=== PATIENT | female | born 1975 | race Caucasian/White ===

== ENCOUNTER 2016-12-23 23:25 | Emergency (ER) | payer OTHER ==
[~2016-12-23] VITALS: Ht 162.6 cm; Wt 54.0 kg
[~2016-12-23 23:25] MED LIST: PRIL20TA2 PO
[2016-12-23 23:26] VITALS: BP 129/80; PULSE 92; RESP 16; TEMP 98.3; O2SAT 98
--- NOTE | 2016-12-24 00:07 | PD ---
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 The patient accidentally stuck her left index finger with an insulin needle after it was used on a patient. There is mild pain at the site. This occurred just prior to arrival in the emergency department. She does not wish to start postexposure prophylaxis. PFSH Past Medical History ?: Not LMP: 2 WKS AGO Social History Alcohol Use: No Tobacco Use: No Allergies-Medications (Allergen,Severity, Reaction): Coded Allergies: Sulfa (Verified Allergy, Severe, Rash, 12/24/16) Reported Meds & Prescriptions Reported Meds & Active Scripts Active Prilosec (Omeprazole Magnesium) 20 Mg Tab 20 Tab PO ONCE Review of Systems Except as stated in HPI: all other systems reviewed are Neg Physical Exam Narrative GENERAL: Well-developed, well-nourished, comfortable, no acute distress. SKIN: Focused skin assessment warm/dry. Index finger without warmth or erythema. No obvious puncture site. CARDIOVASCULAR: Normal capillary refill in left index finger. NEUROLOGICAL: Awake and alert. No obvious cranial nerve deficits. Motor grossly within normal limits. Normal speech. PSYCHIATRIC: Appropriate mood and affect; insight and judgment normal. 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 The patient was stuck in her left index finger with an insulin syringe after was used on the patient. She does not wish to start postexposure prophylaxis. Diagnosis Primary Impression: Needle stick injury of finger Qualified Code: S61.239A - Needle stick injury of finger, initial encounter Referrals: Employ [facility] 1 day Additional Instructions: Follow-up with employee health. Disposition: 01 DISCHARGE HOME Condition: Stable Jose Carlos Walker MD Dec 24, 2016 00:07
== END 2016-12-24 00:17 | disposition home or self-care (01) ==
LOC: NEPD 23:25
DX: S61.231A Puncture wound without foreign body of left index finger without damage to nail, initial encounter (principal); W46.0XXA Contact with hypodermic needle, initial encounter; Y93.F9 Activity, other caregiving; Y92.239 Unspecified place in hospital as the place of occurrence of the external cause
CPT/HCPCS: 99282

== ENCOUNTER 2017-10-19 10:19 | Inpatient (IN) | payer OTHER ==
[~2017-10-19] VITALS: Ht 162.6 cm; Wt 55.0 kg
[2017-10-19 10:20] VITALS: BP 122/77; PULSE 113; RESP 18; TEMP 98.9; O2SAT 99
[2017-10-19 10:59] VITALS: BP 126/81; PULSE 108; RESP 18; O2SAT 23
[2017-10-19] MEDS ORDERED: SODIUM CHLOR 0.9% 1000 ML INJ 1,000 ML IV SCH (11:41)
--- NOTE | 2017-10-19 12:02 | PD ---
HPI Chief Complaint: Abnormal Results Time Seen by Provider: 11:30 Travel History International Travel<30 days: No Contact w/Intl Traveler<30days: No Traveled to known affect area: No History of Present Illness HPI 42-year-old female presents to the emergency room for evaluation after being referred here by outpatient lab for an elevated white count, liver enzymes, and low red blood cells. Patient states since September 19 she has been having health issues including worsening abdominal edema, lower extremity edema, and right upper quadrant abdominal pain. She went to her primary care physician and had a CT which showed gallstones of the liver. She was referred to licensed occupational therapist, . She saw him 2 days ago and was told that she likely has ascites and cirrhosis and was to be started on aldosterone and lasix today. When she went to get her medication filled, the lab called her and told her to go to the ER because of abnormal results. Patient reports occasional nausea but no vomiting. She denies significant abdominal pain. She had a fever of 102.3 1.5 weeks ago but has not had one since. She denies any other upper respiratory symptoms. Denies any other chronic medical conditions or daily medications. Patient quit drinking 2 days ago. Previously she was drinking 1 large bottle of wine (about 6-8 glasses) per day. Since quitting abruptly, she has had some tachycardia but no other significant symptoms. PFSH Past Medical History Cirrhosis: Yes Diminished Hearing: No Gastrointestinal Disorders: Yes (GALLSTONES, ASCITES ) Medical other: Yes (ELEVATED LIVER ENZYMES , HX: ETOH ABUSE ) Tetanus Vaccination: < 5 Years Influenza Vaccination: Yes ?: Not LMP: NOW Past Surgical History Surgical History: No Previous Surgery Social History Alcohol Use: Yes (HX : ETOH ) Tobacco Use: No Allergies-Medications (Allergen,Severity, Reaction): Coded Allergies: Sulfa (Sulfonamide Antibiotics) (Unverified Allergy, Severe, Rash, 10/19/17 ) Reported Meds & Prescriptions Reported Meds & Active Scripts Active Prilosec (Omeprazole Magnesium) 20 Mg Tab 20 Tab PO ONCE Review of Systems Except as stated in HPI: all other systems reviewed are Neg Physical Exam Narrative GENERAL: Well-nourished, well-developed female in no acute distress. Afebrile. Ambulatory. SKIN: Focused skin assessment warm/dry. HEAD: Normocephalic. EYES: No scleral icterus. No injection or drainage. NECK: Supple, trachea midline. No JVD or lymphadenopathy. CARDIOVASCULAR: Regular rate and rhythm without murmurs, gallops, or rubs. RESPIRATORY: Breath sounds equal bilaterally. No accessory muscle use. GASTROINTESTINAL: Abdomen soft, non-tender. Moderate distention of the abdomen. MUSCULOSKELETAL: No cyanosis. 1+ pitting edema bilaterally. Data Data Last Documented VS Vital Signs Date Time Temp Pulse Resp B/P (MAP) Pulse Ox O2 Delivery O2 Flow Rate FiO2 10/19/17 11:00 98 Room Air 10/19/17 10:59 108 18 126/81 (96) 10/19/17 10:20 98.9 Orders Orders Complete Blood Count With Diff (10/19/17 11:41) Comprehensive Metabolic Panel (10/19/17 11:41) Lipase (10/19/17 11:41) Lactic Acid (10/19/17 11:41) Prothrombin Time / Inr (Pt) (10/19/17 11:41) Act Partial Throm Time (Ptt) (10/19/17 11:41) Urinalysis - C+S If Indicated (10/19/17 11:41) Abdomen, Flat & Upright (10/19/17 ) Iv Access Insert/Monitor (10/19/17 11:41) Sodium Chlor 0.9% 1000 Ml Inj (Ns 1000 M (10/19/17 11:41) Ed Urine Pregnancytest Poc (10/19/17 11:41) Blood Culture (10/19/17 13:23) Consult Gastroenterology (10/19/17 ) Us Abdomen Gallbladder (10/19/17 ) Admit To Inpatient (10/19/17 ) Code Status (10/19/17 14:16) Vital Signs (Adult) Q4H (10/19/17 14:16) Activity Oob With Assistance (10/19/17 14:16) Sodium Chloride 0.9% Flush (Ns Flush) (10/19/17 14:30) Sodium Chloride 0.9% Flush (Ns Flush) (10/19/17 21:00) Ondansetron Inj (Zofran Inj) (10/19/17 14:30) Comprehensive Metabolic Panel (10/20/17 06:00) Complete Blood Count With Diff (10/20/17 06:00) Chest, Single Ap (10/19/17 14:16) Electrocardiogram (10/19/17 14:16) Pt Request For Service (10/19/17 14:16) Scd Bilateral/Knee High ANY.BID (10/19/17 14:16) Naloxone Inj (Narcan Inj) (10/19/17 14:30) Magnesium Hydroxide Liq (Milk Of Magnesi (10/19/17 14:30) Inpatient Certification (10/19/17 ) Naloxone Inj (Narcan Inj) (10/19/17 14:30) Alcohol Withdrawal Asmt-Ciwa Q4HX18 (10/19/17 14:18) Flumazenil Inj (Romazicon Inj) (10/19/17 14:30) Lorazepam (Ativan) (10/19/17 14:30) Lorazepam Inj (Ativan Inj) (10/19/17 14:30) Lorazepam (Ativan) (10/19/17 14:30) Lorazepam Inj (Ativan Inj) (10/19/17 14:30) Lorazepam Inj (Ativan Inj) (10/19/17 14:30) Lorazepam Inj (Ativan Inj) (10/19/17 14:30) Outside Collector / Telemetry .CONTINUOUS (10/19/17 14:18) Docusate Sodium-Senna (Belen-Colace) (10/19/17 21:00) Multivitamin (Theragran) (10/20/17 09:00) Thiamine (Vit B1) (Vitamin B1) (10/20/17 09:00) Folic Acid (Folate) (10/20/17 09:00) Diet Clear Liquid (10/19/17 Dinner) Ns + Kcl 20 Meq Inj (Ns + Kcl 20 Meq Inj (10/19/17 14:30) Blood Culture (10/19/17 14:26) Admit Order (Ed Use Only) (10/19/17 14:26) Labs Laboratory Tests Test 10/19/17 11:10 10/19/17 12:00 White Blood Count 25.3 TH/MM3 Red Blood Count 3.40 MIL/MM3 Hemoglobin 11.7 GM/DL Hematocrit 34.6 % Mean Corpuscular Volume 101.8 FL Mean Corpuscular Hemoglobin 34.5 PG Mean Corpuscular Hemoglobin Concent 33.8 % Red Cell Distribution Width 16.2 % Platelet Count 407 TH/MM3 Mean Platelet Volume 7.0 FL Neutrophils (%) (Auto) 88.8 % Lymphocytes (%) (Auto) 5.7 % Monocytes (%) (Auto) 3.6 % Eosinophils (%) (Auto) 1.5 % Basophils (%) (Auto) 0.4 % Neutrophils # (Auto) 22.4 TH/MM3 Lymphocytes # (Auto) 1.4 TH/MM3 Monocytes # (Auto) 0.9 TH/MM3 Eosinophils # (Auto) 0.4 TH/MM3 Basophils # (Auto) 0.1 TH/MM3 CBC Comment AUTO DIFF Differential Total Cells Counted 100 Neutrophils % (Manual) 82 % Band Neutrophils % 12 % Monocytes % 4 % Eosinophils % 2 % Neutrophils # (Manual) 23.8 TH/MM3 Differential Comment FINAL DIFF MANUAL Toxic Vacuolation PRESENT Platelet Estimate NORMAL Platelet Morphology Comment NORMAL Prothrombin Time 15.4 SEC Prothromb Time International Ratio 1.5 RATIO Activated Partial Thromboplast Time 31.0 SEC Blood Urea Nitrogen 5 MG/DL Creatinine 0.37 MG/DL Random Glucose 115 MG/DL Total Protein 6.9 GM/DL Albumin 2.8 GM/DL Calcium Level 8.5 MG/DL Alkaline Phosphatase 684 U/L Aspartate Amino Transf (AST/SGOT) 138 U/L Alanine Aminotransferase (ALT/SGPT) 56 U/L Total Bilirubin 4.1 MG/DL Sodium Level 137 MEQ/L Potassium Level 3.5 MEQ/L Chloride Level 100 MEQ/L Carbon Dioxide Level 28.1 MEQ/L Anion Gap 9 MEQ/L Estimat Glomerular Filtration Rate 193 ML/MIN Lactic Acid Level 1.0 mmol/L Lipase 329 U/L Urine Color YELLOW Urine Turbidity CLEAR Urine pH 7.0 Urine Specific [place] 1.005 Urine Protein NEG mg/dL Urine Glucose (UA) NEG mg/dL Urine Ketones 10 mg/dL Urine Occult Blood NEG Urine Nitrite NEG Urine Bilirubin NEG Urine Urobilinogen LESS THAN 2.0 MG/DL Urine Leukocyte Esterase NEG Urine WBC 1 /hpf Urine Bacteria RARE /hpf Microscopic Urinalysis Comment CULT NOT INDICATED MDM Medical Decision Making Medical Screen Exam Complete: Yes Emergency Medical Condition: Yes Medical Record Reviewed: Yes Differential Diagnosis Ascites, ovarian cancer, cirrhosis, fatty liver Narrative Course 42-year-old female with no significant past medical history presents to the emergency room for evaluation of leukocytosis and transaminitis. Patient was referred by outpatient lab because of elevated results. States since September 19 , she isn't experiencing bloating and malaise. She went to her PCP who ordered outpatient labs and CT and was referred to gastroenterology for fatty liver and transaminitis. Her licensed occupational therapist saw her 2 days ago and ordered more labs with recommendation to start her on aldosterone and Lasix for cirrhosis. She was able to pecan picker the medication because she was told to come to the ER instead. Patient denies any significant abdominal pain. She has constant, chronic right upper quadrant pain with occasional nausea but no vomiting. Normal appetite. She was a daily drinker but quit 2 days ago. Physical exam reveals moderate distention and right upper quadrant tenderness. No peritoneal signs or rebound tenderness. CBC shows leukocytosis. CMP shows transaminitis. Lactic acid is 1. Lipase is 329. UA shows no evidence of infection. Abdominal x-ray shows abnormal air-fluid levels with no hepatosplenomegaly. Ultrasound gallbladder is ordered and pending. Routine gastroenterology consult placed. I spoke to Dr. Elder who agrees to admit this patient to his service. Diagnosis Primary Impression: Leukocytosis Qualified Codes: D72.825 - Bandemia Additional Impressions: Transaminitis Abdominal pain Qualified Codes: R10.11 - Right upper quadrant pain Condition: Stable Yas Keyes Oct 19, 2017 12:02
[2017-10-19 12:21] LABS: AUTOMATED NEUTROPHIL # 22.4 TH/MM3 (1.8-7.7); BASOPHIL # 0.1 TH/MM3 (0-0.2); BASOPHIL % 0.4 % (0.0-2.0); EOSINOPHIL # 0.4 TH/MM3 (0-0.4); EOSINOPHIL % 1.5 % (0.0-4.0); HEMATOCRIT 34.6 % (35.0-46.0); HEMOGLOBIN 11.7 GM/DL (11.6-15.3); LYMPH % 5.7 % (9.0-44.0); LYMPHOCYTE # 1.4 TH/MM3 (1.0-4.8); MEAN CELL VOLUME 101.8 FL (80.0-100.0); MEAN CORPUSCULAR HEMOGLOBIN 34.5 PG (27.0-34.0); MEAN CORPUSCULAR HGB CONC 33.8 % (32.0-36.0); MONO % 3.6 % (0.0-8.0); MONOCYTE # 0.9 TH/MM3 (0-0.9); NEUT % 88.8 % (16.0-70.0); PLATELET COUNT 407 TH/MM3 (150-450); RED CELL DISTRIBUTION WIDTH 16.2 % (11.6-17.2); WHITE BLOOD COUNT 25.3 TH/MM3 (4.0-11.0)
[2017-10-19 12:27] LABS: BACTERIA, URINE RARE /hpf; BILIRUBIN, URINE NEG (NEG); BLOOD, URINE NEG (NEG); GLUCOSE,URINE NEG (NEG); KETONE, URINE 10 mg/dL (NEG); NITRITE,URINE NEG (NEG); URINE COLOR YELLOW (YELLW/STRAW); URINE LEUKOCYTE ESTERASE NEG (NEG)
[2017-10-19 12:28] LABS: INTERNATIONAL NORMALIZED RATIO 1.5 RATIO; PROTHROMBIN TIME - PATIENT 15.4 SEC (9.8-11.6)
[2017-10-19 12:36] LABS: ALBUMIN 2.8 GM/DL (3.4-5.0); ALT (GPT) 56 U/L (10-53); AST (GOT) 138 U/L (15-37); BICARBONATE 28.1 MEQ/L (21.0-32.0); BLOOD UREA NITROGEN 5 MG/DL (7-18); CALCIUM 8.5 MG/DL (8.5-10.1); CHLORIDE 100 MEQ/L (98-107); CREATININE 0.37 MG/DL (0.50-1.00); GLOMERULAR FILTRATION RATE 193 ML/MIN (>89); GLUCOSE,RANDOM 115 MG/DL (74-106); SODIUM (NA) 137 MEQ/L (136-145)
[2017-10-19 12:38] LABS: ALKALINE PHOSPHATASE 684 U/L (45-117); TOTAL BILIRUBIN ADULT 4.1 MG/DL (0.2-1.0); TOTAL PROTEIN 6.9 GM/DL (6.4-8.2)
[2017-10-19 13:01] LABS: BANDS 12 % (0-6); MONOCYTES 4 % (0-8); NEUTROPHIL # MANUAL DIFF 23.8 TH/MM3 (1.8-7.7); POLYS (SEG NEUTROPHILS) 82 % (16-70)
[2017-10-19 13:03] LABS: TOXIC VACUOLATION PRESENT (NONE SEEN)
--- NOTE | 2017-10-19 13:09 | RADRPT ---
EXAM DATE/TIME: 10/19/2017 12:17 [place] COMPARISON: No previous studies available for comparison. INDICATIONS : Abdomen pain and distention, loss of appetite. MEDICAL HISTORY : None. SURGICAL HISTORY : None. ENCOUNTER: Initial ACUITY: 3 weeks PAIN SCORE: 3/10 LOCATION: Bilateral chest FINDINGS: Supine and upright views of the abdomen demonstrate air within bowel in a nonobstructive pattern. How ever, there is mildly distended small bowel in the central abdomen which demonstrate air-fluid levels on the upright image. Liver shadow is mildly enlarged. Spleen shadow also appears enlarged. No chula rning calcifications are identified. There is mild levoscoliosis of the lumbar spine. Lung bases are clear. CONCLUSION: 1. There are no findings to indicate small bowel obstruction but small bowel gas pattern is abnormal with a few mildly distended segments of small bowel in the left mid abdomen demonstrating air-fluid l evels. Suggest followup to confirm resolution. 2. The liver appears enlarged and there is possible splenomegaly as well. Lyle Omalley MD on October 19, 2017 at 13:05 Board Certified Radiologist. This report was verified electronically.
--- NOTE | 2017-10-19 14:29 | HHI.HP ---
HPI Service [facility] Hospitalists Primary Care Physician Benny Salomon MD Admission Diagnosis Leukocytosis Chief Complaint: sent by PCP due to abnormal labs Travel History International Travel<30 Days: No Contact w/Intl Traveler <30 Da: No Traveled to Known Affected Are: No History of Present Illness This is a 42-year-old female with a past medical history which includes hyperlipidemia, elevated liver enzymes, IBS and ETOH abuse, quit drinking 2 days ago. Patient presents to the emergency room for evaluation after being referred here by outpatient lab for an elevated white count, liver enzymes, and low red blood cells. Patient states since September 19 she has been having worsening abdominal edema/bloating, intermitted bilateral lower extremity edema , occational nausea but no vomiting. Patient endorses diarrhea after the CT with contrast but that has resulted. She went to her primary care physician and had a CT which showed fatty liver. She was referred to auto finance sales rep, . She saw him 2 days ago and was told that she likely has ascites secondary to cirrhosis and was to be started on aldosterone and lasix today. Patient reports that the lab called her and told her to go to the ER because of abnormal results. She denies significant abdominal pain. She had a fever of 102.3 1.5 weeks ago but has not had one since. Patient denies congestion, dysuria, increased urinary frequency, chest pain or shortness or breath. 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 Review of Systems Constitutional: DENIES: Fatigue, Fever, Chills Respiratory: DENIES: Cough, Sputum production, Shortness of breath Cardiovascular: COMPLAINS OF: Palpitations, DENIES: Chest pain Gastrointestinal: COMPLAINS OF: Abdominal pain, DENIES: Constipation, Diarrhea , Nausea, Vomiting (described as abdominal bloating) Genitourinary: DENIES: Urinary frequency, Urgency, Dysuria Neurologic: DENIES: Abnormal gait, Headache, Localized weakness Psychiatric: DENIES: Anxiety, Confusion, Mood changes Past Family Social History Past Medical History hyperlipidemia, elevated liver enzymes, IBS and ETOH abuse, quit drinking 2 days ago Past Surgical History precancerous mole removed left upper arm Reported Medications Prilosec (Omeprazole Magnesium) 20 Mg Tab 20 Tab PO ONCE Allergies: Coded Allergies: Sulfa (Sulfonamide Antibiotics) (Unverified Allergy, Severe, Rash, 10/19/17 ) Active Ordered Medications Current Medications Medications (Trade) Dose Ordered Sig/Maritza Route Start Time Stop Time Status Last Admin (NS Flush) 2 ml UNSCH PRN IV FLUSH 10/19/17 14:30 (NS Flush) 2 ml BID IV FLUSH 10/19/17 21:00 (Zofran Inj) 4 mg Q6H PRN IVP 10/19/17 14:30 (Narcan Inj) 0.4 mg UNSCH PRN IV PUSH 10/19/17 14:30 (Milk Of Magnesia Liq) 30 ml Q12H PRN PO 10/19/17 14:30 (Narcan Inj) 0.4 mg UNSCH PRN IV PUSH 10/19/17 14:30 (Romazicon Inj) 0.2 mg Q1M PRN IV PUSH 10/19/17 14:30 (Ativan) 1 mg Q4H PRN PO 10/19/17 14:30 (Ativan Inj) 1 mg Q4H PRN IV PUSH 10/19/17 14:30 (Ativan) 2 mg Q2H PRN PO 10/19/17 14:30 (Ativan Inj) 2 mg Q2H PRN IV PUSH 10/19/17 14:30 (Ativan Inj) 2 mg Q1H PRN IV PUSH 10/19/17 14:30 (Ativan Inj) 2 mg Q15M PRN IV PUSH 10/19/17 14:30 (Belen-Colace) 1 tab BID PO 10/19/17 21:00 (Theragran) 1 tab DAILY PO 10/20/17 09:00 (Vitamin B1) 100 mg DAILY PO 10/20/17 09:00 (Folate) 1 mg DAILY PO 10/20/17 09:00 Potassium Chloride/Sodium Chloride 1,000 ml @ 85 mls/hr [id number] IV 10/19/17 14:30 10/19/17 15:04 Family History Noncontributory Social History History of EtOH use usually drinks 1 large bottle of wine per day and quit drinking 2 days ago Denies tobacco use or illicit drug use Physical Exam Vital Signs Vital Signs Date Time Temp Pulse Resp B/P (MAP) Pulse Ox O2 Delivery O2 Flow Rate FiO2 10/19/17 11:00 98 Room Air 10/19/17 10:59 108 18 126/81 (96) 23 Room Air 10/19/17 10:20 98.9 113 18 122/77 (92) 99 Room Air Physical Exam GENERAL: This is a well-nourished, well-developed patient, in no apparent distress. SKIN: No rashes, ecchymoses or lesions. Cool and dry. HEAD: Atraumatic. Normocephalic. No temporal or scalp tenderness. EYES:Extraocular motions intact. No scleral icterus. No injection or drainage. CARDIOVASCULAR: Tachycardic RESPIRATORY: Clear to auscultation. Breath sounds equal bilaterally. GASTROINTESTINAL: Abdomen soft, non-tender, distended. Liver margin below costal margin extends to the pelvic rim MUSCULOSKELETAL: Extremities without clubbing, cyanosis, or edema. No joint tenderness, effusion, or edema noted. No calf tenderness. Negative Homans sign bilaterally. NEUROLOGICAL: Awake and alert. No focal deficits noted. Motor and sensory grossly within normal limits. Five out of 5 muscle strength in all muscle groups. Normal speech. Laboratory Laboratory Tests Test 10/19/17 11:10 10/19/17 12:00 White Blood Count 25.3 Red Blood Count 3.40 Hemoglobin 11.7 Hematocrit 34.6 Mean Corpuscular Volume 101.8 Mean Corpuscular Hemoglobin 34.5 Mean Corpuscular Hemoglobin Concent 33.8 Red Cell Distribution Width 16.2 Platelet Count 407 Mean Platelet Volume 7.0 Neutrophils (%) (Auto) 88.8 Lymphocytes (%) (Auto) 5.7 Monocytes (%) (Auto) 3.6 Eosinophils (%) (Auto) 1.5 Basophils (%) (Auto) 0.4 Neutrophils # (Auto) 22.4 Lymphocytes # (Auto) 1.4 Monocytes # (Auto) 0.9 Eosinophils # (Auto) 0.4 Basophils # (Auto) 0.1 CBC Comment AUTO DIFF Differential Total Cells Counted 100 Neutrophils % (Manual) 82 Band Neutrophils % 12 Monocytes % 4 Eosinophils % 2 Neutrophils # (Manual) 23.8 Differential Comment FINAL DIFF MANUAL Toxic Vacuolation PRESENT Platelet Estimate NORMAL Platelet Morphology Comment NORMAL Prothrombin Time 15.4 Prothromb Time International Ratio 1.5 Activated Partial Thromboplast Time 31.0 Blood Urea Nitrogen 5 Creatinine 0.37 Random Glucose 115 Total Protein 6.9 Albumin 2.8 Calcium Level 8.5 Alkaline Phosphatase 684 Aspartate Amino Transf (AST/SGOT) 138 Alanine Aminotransferase (ALT/SGPT) 56 Total Bilirubin 4.1 Sodium Level 137 Potassium Level 3.5 Chloride Level 100 Carbon Dioxide Level 28.1 Anion Gap 9 Estimat Glomerular Filtration Rate 193 Lactic Acid Level 1.0 Lipase 329 Urine Color YELLOW Urine Turbidity CLEAR Urine pH 7.0 Urine Specific [place] 1.005 Urine Protein NEG Urine Glucose (UA) NEG Urine Ketones 10 Urine Occult Blood NEG Urine Nitrite NEG Urine Bilirubin NEG Urine Urobilinogen LESS THAN 2.0 Urine Leukocyte Esterase NEG Urine WBC 1 Urine Bacteria RARE Microscopic Urinalysis Comment CULT NOT INDICATED Date/Time Source Procedure Growth Status 10/19/17 10:45 Blood Peripheral Aerobic Blood Culture Pending Received 10/19/17 10:45 Blood Peripheral Anaerobic Blood Culture Pending Received Result Diagram: 10/19/17 1110 10/19/17 1110 Imaging Last Impressions Abdomen X-Ray 10/19/17 0000 Signed Impressions: Service Date/Time: Thursday, October 19, 2017 12:17 - CONCLUSION: 1. There are no findings to indicate small bowel obstruction but small bowel gas pattern is abnormal with a few mildly distended segments of small bowel in the left mid abdomen demonstrating air-fluid levels. Suggest followup to confirm resolution. 2. The liver appears enlarged and there is possible splenomegaly as well. MD Nik Sher VTE Risk Assessment Caprini VTE Risk Assessment: No/Low Risk (score <= 1) Caprini Risk Assessment Model Point Value = 1 Point Value = 2 Point Value = 3 Point Value = 5 Age 41-60 Minor surgery BMI > 25 kg/m2 Swollen legs Varicose veins or History of unexplained or recurrent spontaneous Oral contraceptives or hormone replacement Sepsis (< 1 month) Serious lung disease, including pneumonia (< 1 month) Abnormal pulmonary function Acute myocardial infarction Congestive heart failure (< 1 month) History of inflammatory bowel disease Medical patient at bed rest Age 61-74 Arthroscopic surgery Major open surgery (> 45 min) Laparoscopic surgery (> 45 min) Malignancy Confined to bed (> 72 hours) Immobilizing plaster cast Central venous access Age >= 75 History of VTE Family history of VTE Factor V Leiden Prothrombin 58038H Lupus anticoagulant Anticardiolipin antibodies Elevated serum homocysteine Heparin-induced thrombocytopenia Other congenital or acquired thrombophilia Stroke (< 1 month) Elective arthroplasty Hip, pelvis, or leg fracture Acute spinal cord injury (< 1 month) Prophylaxis Regimen Total Risk Factor Score Risk Level Prophylaxis Regimen 0-1 Low Early ambulation 2 Moderate Order ONE of the following: *Sequential Compression Device (SCD) *Heparin 5000 units SQ BID 3-4 Higher Order ONE of the following medications: *Heparin 5000 units SQ TID *Enoxaparin/Lovenox 40 mg SQ daily (WT < 150 kg, CrCl > 30 mL/min) *Enoxaparin/Lovenox 30 mg SQ daily (WT < 150 kg, CrCl > 10-29 mL/min) *Enoxaparin/Lovenox 30 mg SQ BID (WT < 150 kg, CrCl > 30 mL/min) AND/OR *Sequential Compression Device (SCD) 5 or more Highest Order ONE of the following medications: *Heparin 5000 units SQ TID (Preferred with Epidurals) *Enoxaparin/Lovenox 40 mg SQ daily (WT < 150 kg, CrCl > 30 mL/min) *Enoxaparin/Lovenox 30 mg SQ daily (WT < 150 kg, CrCl > 10-29 mL/min) *Enoxaparin/Lovenox 30 mg SQ BID (WT < 150 kg, CrCl > 30 mL/min) AND *Sequential Compression Device (SCD) Assessment and Plan Problem List: (1) Alcoholic cirrhosis ICD Codes: K70.30 - Alcoholic cirrhosis of liver without ascites Plan: Patient counselled on ETOH use, encouraged to abstain Quit drinking 2 days ago CIWA protocol Librium 10 mg PO BID, hold for sedation hepatitis profile ordered Consult GI (2) Leukocytosis ICD Codes: D72.829 - Elevated white blood cell count, unspecified Status: Acute Plan: Patient has no fever or chills denies abd pain CXR reviewed and reveals no acute disease UA reviewed no culture indicated Leukocytosis likely reactive, will recheck in AM. Follow for ss of infection (3) Acid reflux disease ICD Codes: K21.9 - Gastroesophageal reflux disease Status: Acute Plan: [facility], [place], operated by [facility] Assessment and Plan Patient examined. Assessment and plan formulated with Rosita Hobbs PA-C. I agree with the above. Marked leukocytosis. Pt c/o RUQ abdominal pain. Outpt CT abd/pelvis reviewed with Radiology. Pt has massive hepatomegaly. Follow cultures. Problem Qualifiers (1) Leukocytosis: Qualified Codes: D72.825 - Bandemia Rosita Hobbs Oct 19, 2017 14:29 Jhony Elder DO Oct 20, 2017 14:12
[2017-10-19] MEDS ORDERED: NALOXONE HCL 0.4 MG/ML AMP IV PUSH PRN ×2 (14:30)
[2017-10-19] MEDS ORDERED: LORazepam 2 MG TAB PO PRN (14:30)
[2017-10-19] MEDS ORDERED: MAGNESIUM HYDROXIDE SUSP 30 ML CUP PO PRN (14:30)
[2017-10-19] MEDS ORDERED: LORazepam 1 MG TAB PO PRN (14:30)
[2017-10-19] MEDS ORDERED: LORazepam 2 MG/ML VIAL IV PUSH PRN ×4 (14:30)
[2017-10-19] MEDS ORDERED: FLUMAZENIL 0.5 MG/5 ML VIAL IV PUSH PRN (14:30)
[2017-10-19] MEDS ORDERED: ONDANSETRON HCL 4 MG/2 ML VIAL IVP PRN (14:30)
[2017-10-19] MEDS ORDERED: SODIUM CHLORIDE 0.9% FLUSH 10 ML FLUSH IV FLUSH PRN (14:30)
[2017-10-19] MEDS: NS + KCL 20 MEQ INJ 1,000 ML IV SCH (15:04)
--- NOTE | 2017-10-19 15:33 | RADRPT ---
EXAM DATE/TIME: 10/19/2017 14:22 [facility] COMPARISON: No previous studies available for comparison. EXTERNAL COMPARISON : [facility], CT ABDOMEN & PELVIS W/O CONTRAST, October 15, 2017 INDICATIONS : Right upper quadrant pain. MEDICAL HISTORY : Gastroesophageal reflux disease. Cirrhosis. Gallstones. Ascites. ETOH abuse. SURGICAL HISTORY : Premelanoma left upper arm removal. ENCOUNTER: Initial ACUITY: 3 weeks PAIN SCORE: 3/10 LOCATION: Right upper quadrant MEASUREMENTS: LIVER: 25.0 cm length COMMON DUCT: 5 mm RIGHT KIDNEY: 11.0 x 6.0 x 4.0 cm FINDINGS: LIVER: The liver is prominent measuring up to 25 cm with diffuse increased echogenicity. There is no focal m ass or ductal dilatation. There is normal hepatopedal blood flow in the portal vein there is a small amount of ascitic fluid. COMMON DUCT: No intraluminal mass or stone visualized. GALLBLADDER: Gallbladder appears normal in size and shape with mild wall thickening measuring up to 5 mm. There is a small amount of apparent pericholecystic fluid. There is echogenic sludge within the gallbladder a s well as a calcified stone with posterior shadowing. PANCREAS: The visualized portions are within normal limits. RIGHT KIDNEY: No evidence of hydronephrosis, stone, or mass. CONCLUSION: 1. Cholelithiasis and sludge with gallbladder wall thickening and apparent mild pericholecystic fluid . 2. No evidence of biliary obstruction. 3. The liver is enlarged with mild to moderate hepatic steatosis. 4. Small amount of ascitic fluid. Rob Ryan MD on October 19, 2017 at 15:28 Board Certified Radiologist. This report was verified electronically.
--- NOTE | 2017-10-19 15:45 | RADRPT ---
EXAM DATE/TIME: 10/19/2017 15:26 [facility] COMPARISON: No previous studies available for comparison. INDICATIONS : Cough, swelling in lower abdomen and ankles MEDICAL HISTORY : None. SURGICAL HISTORY : None. ENCOUNTER: Initial ACUITY: 1 day PAIN SCORE: 0/10 LOCATION: Bilateral chest FINDINGS: A single view of the chest demonstrates the lungs to be symmetrically aerated without evidence of mas s, infiltrate or effusion. The cardiomediastinal contours are unremarkable. Osseous structures are intact. CONCLUSION: No acute disease. Louis Hare MD on October 19, 2017 at 15:43 Board Certified Radiologist. This report was verified electronically.
--- NOTE | 2017-10-19 15:53 | PD.CONS ---
HPI History of Present Illness This is a 42 year old female with hx heavy etoh use and was advised to come to ER for abnormal labs done at [facility], elevated WBC and LFTs. She has had abd swelling and BLE edema in the last 4 weeks. Admits diffuse abd discomfort, early satiety, indicates pain worse RUQ and epigastrium. No n/v, blood in the stool, black tarry stool. Has noticed her eyes appearing yellow in the last week, dark urine. She started seeing Dr Salomon who ordered a CT scan done [facility] a week ago finding of gallstones, fluid in abd, fatty liver. Admits hx elevated LFTs intermittently. Admits drinking 6-8 glasses of wine daily. She had EGD and colonoscopy [address] Wells and findings of gastritis, polyps serrated adenoma. She is scheduled for repeat EGD and colonoscopy 10/28/17. (Tayler Schmitt) PFSH Past Medical History HLD IBS Past Surgical History Mole excision (Tayler Schmitt) Coded Allergies: Sulfa (Sulfonamide Antibiotics) (Unverified Allergy, Severe, Rash, 10/19/17 ) Family History serrated polyps HLD colon ca gall stones CVD Social History drinks 6-8 glasses daily, recently quit denies tobacco, illicit drug use (Tayler Schmitt) Review of Systems Constitutional: DENIES: Fever Endocrine: DENIES: Polydipsia Eyes: DENIES: Blurred vision Ears, nose, mouth, throat: DENIES: Hearing loss Respiratory: DENIES: Cough Cardiovascular: DENIES: Chest pain Gastrointestinal: COMPLAINS OF: Abdominal pain, Anorexia, Swelling of Abdomen, DENIES: Black stools, Bloody stools, Constipation, Diarrhea, Nausea, Vomiting Genitourinary: DENIES: Hematuria Musculoskeletal: DENIES: Joint Swelling Integumentary: COMPLAINS OF: Jaundice Hematologic/lymphatic: DENIES: Bruising Neurologic: DENIES: Abnormal gait Psychiatric: DENIES: Confusion (Tayler Schmitt) GI Exam Vitals I&O Vital Signs Date Time Temp Pulse Resp B/P (MAP) Pulse Ox O2 Delivery O2 Flow Rate FiO2 10/19/17 11:00 98 Room Air 10/19/17 10:59 108 18 126/81 (96) 23 Room Air 10/19/17 10:20 98.9 113 18 122/77 (30) 99 Room Air Imaging Last Impressions Abdomen X-Ray 10/19/17 0000 Signed Impressions: Service Date/Time: Thursday, October 19, 2017 12:17 - CONCLUSION: 1. There are no findings to indicate small bowel obstruction but small bowel gas pattern is abnormal with a few mildly distended segments of small bowel in the left mid abdomen demonstrating air-fluid levels. Suggest followup to confirm resolution. 2. The liver appears enlarged and there is possible splenomegaly as well. Lyle Omalley MD Laboratory Test 10/19/17 11:10 10/19/17 12:00 White Blood Count 25.3 TH/MM3 Red Blood Count 3.40 MIL/MM3 Hemoglobin 11.7 GM/DL Hematocrit 34.6 % Mean Corpuscular Volume 101.8 FL Mean Corpuscular Hemoglobin 34.5 PG Mean Corpuscular Hemoglobin Concent 33.8 % Red Cell Distribution Width 16.2 % Platelet Count 407 TH/MM3 Mean Platelet Volume 7.0 FL Neutrophils (%) (Auto) 88.8 % Lymphocytes (%) (Auto) 5.7 % Monocytes (%) (Auto) 3.6 % Eosinophils (%) (Auto) 1.5 % Basophils (%) (Auto) 0.4 % Neutrophils # (Auto) 22.4 TH/MM3 Lymphocytes # (Auto) 1.4 TH/MM3 Monocytes # (Auto) 0.9 TH/MM3 Eosinophils # (Auto) 0.4 TH/MM3 Basophils # (Auto) 0.1 TH/MM3 CBC Comment AUTO DIFF Differential Total Cells Counted 100 Neutrophils % (Manual) 82 % Band Neutrophils % 12 % Monocytes % 4 % Eosinophils % 2 % Neutrophils # (Manual) 23.8 TH/MM3 Differential Comment FINAL DIFF MANUAL Toxic Vacuolation PRESENT Platelet Estimate NORMAL Platelet Morphology Comment NORMAL Prothrombin Time 15.4 SEC Prothromb Time International Ratio 1.5 RATIO Activated Partial Thromboplast Time 31.0 SEC Blood Urea Nitrogen 5 MG/DL Creatinine 0.37 MG/DL Random Glucose 115 MG/DL Total Protein 6.9 GM/DL Albumin 2.8 GM/DL Calcium Level 8.5 MG/DL Alkaline Phosphatase 684 U/L Aspartate Amino Transf (AST/SGOT) 138 U/L Alanine Aminotransferase (ALT/SGPT) 56 U/L Total Bilirubin 4.1 MG/DL Sodium Level 137 MEQ/L Potassium Level 3.5 MEQ/L Chloride Level 100 MEQ/L Carbon Dioxide Level 28.1 MEQ/L Anion Gap 9 MEQ/L Estimat Glomerular Filtration Rate 193 ML/MIN Lactic Acid Level 1.0 mmol/L Lipase 329 U/L Urine Color YELLOW Urine Turbidity CLEAR Urine pH 7.0 Urine Specific [place] 1.005 Urine Protein NEG mg/dL Urine Glucose (UA) NEG mg/dL Urine Ketones 10 mg/dL Urine Occult Blood NEG Urine Nitrite NEG Urine Bilirubin NEG Urine Urobilinogen LESS THAN 2.0 MG/DL Urine Leukocyte Esterase NEG Urine WBC 1 /hpf Urine Bacteria RARE /hpf Microscopic Urinalysis Comment CULT NOT INDICATED Date/Time Source Procedure Growth Status 10/19/17 10:45 Blood Peripheral Aerobic Blood Culture Pending Received 10/19/17 10:45 Blood Peripheral Anaerobic Blood Culture Pending Received Physical Examination HEENT: PERRL; normocephalic; atraumatic; mild icterus CHEST: CTA CARDIAC: RRR ABDOMEN: Soft, nondistended, nontender; +hepatomegaly; bowel sounds are present in all four quadrants. EXTREMITIES: No clubbing, cyanosis, or edema. SKIN: Normal; no rash; mild jaundice. ZOOKEEPER: No focal deficits; alert and oriented times three. (Tayler Schmitt) Assessment and Plan Plan ASSESSMENT - elevated LFTs, ascites, abd discomfort - likely etoh hepatitis. US shows gallstones and sludge, GB wall thickening, enlarged liver, fatty liver, no evidence biliary obstruction. previous CT 1 wk ago showed gallstones, abd fluid per pt. DF <32. attempted to call Dr Salomon's office for report but they must be gone for the day - leukocytosis - wbc 25.3 unclear source. afebrile - coagulopathy - INR 1.5 HH WNL - macrocytosis PLAN - await hepatitis profile - liver w/u - will order diagnostic paracentesis but may not be sufficient fluid - ascitic fluid for culture, cytology, albumin - consider diuretics - low salt diet - f/u with GI for scheduled EGD and colonoscopy -further recs as case unfolds pt seen by myself and Dr Saldana and this note is written on his behalf (Tayler Schmitt) Plan patient was seen and examined, agree with above note, most likely ETOH induced liver Dx but we will try to r/o other etiologies no ETOH we will check fluid to R/O SBP (Ingrid Rolle MD) Tayler Schmitt Oct 19, 2017 15:53 Ingrid Rolle MD Oct 19, 2017 17:02
[2017-10-19 16:00] VITALS: BP 116/74; PULSE 108; RESP 17; TEMP 98; O2SAT 91
[2017-10-19] MEDS ORDERED: PANTOPRAZOLE SOD 20 MG DELAYED RELEASE TAB PO SCH (17:15)
--- NOTE | 2017-10-19 17:20 | EKG ---
Date Performed: 10/19/2017 Time Performed: 15:16:40 PTAGE: 42 years EKG: Sinus rhythm ABNORMAL QRS-T ANGLE ABNORMAL ECG NO PREVIOUS TRACING DOCTOR: Syed Martinez Interpretating Date/Time 10/19/2017 17:18:20
[2017-10-19 20:00] VITALS: BP 107/66; PULSE 99; RESP 20; TEMP 98.2; O2SAT 96
[2017-10-19] MEDS: SODIUM CHLORIDE 0.9% FLUSH 10 ML FLUSH IV FLUSH SCH (21:00)
[2017-10-19] MEDS: DOCUSATE SODIUM 50 MG/SENNA 8.6 MG TAB PO SCH (21:00)
--- NOTE | 2017-10-19 23:00 | RADRPT ---
EXAM DATE/TIME: 10/19/2017 22:16 [facility] COMPARISON: No previous studies available for comparison. INDICATIONS : Ascites. MEDICAL HISTORY : Gastroesophageal reflux disease. Cirrhosis. Hypercholesterolemia. Liver disease. Jaundice. Anxiety. E JOE abuse. Skin cancer. Blood transfusion. IBS. Gastritis. SURGICAL HISTORY : Colonoscopy with polyp removal. Skin cancer removal. ENCOUNTER: Initial ACUITY: 1 day PAIN SCORE: 2/10 LOCATION: Abdomen. AREA EVALUATED: Abdominal quadrants. FINDINGS: Trace ascites is noted. There is not enough fluid for safe paracentesis. CONCLUSION: Trace ascites is noted. Joaquim Haro MD on October 19, 2017 at 22:55 Board Certified Radiologist. This report was verified electronically.
[2017-10-20] VITALS: BP 103/66; PULSE 101; PULSE 103; RESP 20; TEMP 98.8; O2SAT 98
[2017-10-20] MEDS: NS + KCL 20 MEQ INJ 1,000 ML IV SCH ×2 (02:31→12:51)
[2017-10-20 05:14] VITALS: BP 99/61; PULSE 101; RESP 18; TEMP 98.8; O2SAT 97
[2017-10-20 06:04] LABS: AUTOMATED NEUTROPHIL # 18.9 TH/MM3 (1.8-7.7); BASOPHIL # 0.1 TH/MM3 (0-0.2); BASOPHIL % 0.4 % (0.0-2.0); EOSINOPHIL # 0.4 TH/MM3 (0-0.4); EOSINOPHIL % 1.9 % (0.0-4.0); HEMATOCRIT 32.6 % (35.0-46.0); HEMOGLOBIN 11.2 GM/DL (11.6-15.3); LYMPH % 5.2 % (9.0-44.0); LYMPHOCYTE # 1.1 TH/MM3 (1.0-4.8); MEAN CORPUSCULAR HEMOGLOBIN 34.7 PG (27.0-34.0); MEAN CORPUSCULAR HGB CONC 34.4 % (32.0-36.0); MEAN PLATELET VOLUME 6.6 FL (7.0-11.0); MONO % 3.6 % (0.0-8.0); MONOCYTE # 0.8 TH/MM3 (0-0.9); NEUT % 88.9 % (16.0-70.0); PLATELET COUNT 330 TH/MM3 (150-450); RED BLOOD COUNT 3.23 MIL/MM3 (4.00-5.30); RED CELL DISTRIBUTION WIDTH 16.2 % (11.6-17.2); WHITE BLOOD COUNT 21.3 TH/MM3 (4.0-11.0)
[2017-10-20 06:26] LABS: ALBUMIN 2.5 GM/DL (3.4-5.0); ALT (GPT) 54 U/L (10-53); AST (GOT) 134 U/L (15-37); BICARBONATE 25.5 MEQ/L (21.0-32.0); BLOOD UREA NITROGEN 3 MG/DL (7-18); CALCIUM 8.1 MG/DL (8.5-10.1); CHLORIDE 103 MEQ/L (98-107); CREATININE 0.29 MG/DL (0.50-1.00); GLOMERULAR FILTRATION RATE 256 ML/MIN (>89); GLUCOSE,RANDOM 80 MG/DL (74-106); IRON (FE) 52 MCG/DL (50-170); SODIUM (NA) 137 MEQ/L (136-145)
[2017-10-20 06:29] LABS: % SATURATION IRON PROFILE 26.3 % (20-50); ALKALINE PHOSPHATASE 620 U/L (45-117); FERRITIN 415 NG/ML (8-252); TOTAL BILIRUBIN ADULT 4.1 MG/DL (0.2-1.0); TOTAL IRON BINDING CAPACITY 197 MCG/DL (250-450); TOTAL PROTEIN 6.2 GM/DL (6.4-8.2)
[2017-10-20 06:35] LABS: ACETAMINOPHEN LESS THAN 2.0 MCG/ML (10.0-30.0)
[2017-10-20] MEDS: SODIUM CHLORIDE 0.9% FLUSH 10 ML FLUSH IV FLUSH SCH ×2 (08:11→21:00)
[2017-10-20] MEDS: THIAMINE HCL 100 MG TAB PO SCH (08:13)
[2017-10-20] MEDS: FOLIC ACID 1 MG TAB PO SCH (08:13)
[2017-10-20] MEDS: MULTIVITAMIN TAB PO SCH (08:13)
[2017-10-20] MEDS: DOCUSATE SODIUM 50 MG/SENNA 8.6 MG TAB PO SCH ×2 (08:14→21:00)
[2017-10-20 08:56] VITALS: BP 102/60; PULSE 94; RESP 16; TEMP 97.1; O2SAT 95
--- NOTE | 2017-10-20 10:15 | HHI.PR ---
Subjective Remarks No new complaints reports feeling better less abd bloating Patient does have RUQ abd pain with palpation Objective Vitals Vital Signs Date Time Temp Pulse Resp B/P (MAP) Pulse Ox O2 Delivery O2 Flow Rate FiO2 10/20/17 08:56 97.1 94 16 102/60 (74) 95 10/20/17 05:14 98.8 101 18 99/61 (74) 97 10/20/17 00:00 103 10/20/17 00:00 98.8 101 20 103/66 (78) 98 10/19/17 20:00 98.2 99 20 107/66 (80) 96 10/19/17 16:02 10/19/17 16:00 98.0 108 17 116/74 (88) 91 10/19/17 11:00 98 Room Air 10/19/17 10:59 108 18 126/81 (96) 23 Room Air 10/19/17 10:20 98.9 113 18 122/77 (92) 99 Room Air Result Diagram: 10/20/17 0538 10/20/17 0538 Other Results Laboratory Tests Test 10/19/17 11:10 10/19/17 12:00 10/19/17 21:14 10/20/17 05:38 White Blood Count 25.3 TH/MM3 21.3 TH/MM3 Red Blood Count 3.40 MIL/MM3 3.23 MIL/MM3 Hemoglobin 11.7 GM/DL 11.2 GM/DL Hematocrit 34.6 % 32.6 % Mean Corpuscular Volume 101.8 FL 101.0 FL Mean Corpuscular Hemoglobin 34.5 PG 34.7 PG Mean Corpuscular Hemoglobin Concent 33.8 % 34.4 % Red Cell Distribution Width 16.2 % 16.2 % Platelet Count 407 TH/MM3 330 TH/MM3 Mean Platelet Volume 7.0 FL 6.6 FL Neutrophils (%) (Auto) 88.8 % 88.9 % Lymphocytes (%) (Auto) 5.7 % 5.2 % Monocytes (%) (Auto) 3.6 % 3.6 % Eosinophils (%) (Auto) 1.5 % 1.9 % Basophils (%) (Auto) 0.4 % 0.4 % Neutrophils # (Auto) 22.4 TH/MM3 18.9 TH/MM3 Lymphocytes # (Auto) 1.4 TH/MM3 1.1 TH/MM3 Monocytes # (Auto) 0.9 TH/MM3 0.8 TH/MM3 Eosinophils # (Auto) 0.4 TH/MM3 0.4 TH/MM3 Basophils # (Auto) 0.1 TH/MM3 0.1 TH/MM3 CBC Comment AUTO DIFF DIFF FINAL Differential Total Cells Counted 100 Neutrophils % (Manual) 82 % Band Neutrophils % 12 % Monocytes % 4 % Eosinophils % 2 % Neutrophils # (Manual) 23.8 TH/MM3 Differential Comment FINAL DIFF MANUAL Toxic Vacuolation PRESENT Platelet Estimate NORMAL Platelet Morphology Comment NORMAL Prothrombin Time 15.4 SEC Prothromb Time International Ratio 1.5 RATIO Activated Partial Thromboplast Time 31.0 SEC Blood Urea Nitrogen 5 MG/DL 3 MG/DL Creatinine 0.37 MG/DL 0.29 MG/DL Random Glucose 115 MG/DL 80 MG/DL Total Protein 6.9 GM/DL 6.2 GM/DL Albumin 2.8 GM/DL 2.5 GM/DL Calcium Level 8.5 MG/DL 8.1 MG/DL Alkaline Phosphatase 684 U/L 620 U/L Aspartate Amino Transf (AST/SGOT) 138 U/L 134 U/L Alanine Aminotransferase (ALT/SGPT) 56 U/L 54 U/L Total Bilirubin 4.1 MG/DL 4.1 MG/DL Sodium Level 137 MEQ/L 137 MEQ/L Potassium Level 3.5 MEQ/L 3.6 MEQ/L Chloride Level 100 MEQ/L 103 MEQ/L Carbon Dioxide Level 28.1 MEQ/L 25.5 MEQ/L Anion Gap 9 MEQ/L 9 MEQ/L Estimat Glomerular Filtration Rate 193 ML/MIN 256 ML/MIN Lactic Acid Level 1.0 mmol/L Lipase 329 U/L Urine Color YELLOW Urine Turbidity CLEAR Urine pH 7.0 Urine Specific [place] 1.005 Urine Protein NEG mg/dL Urine Glucose (UA) NEG mg/dL Urine Ketones 10 mg/dL Urine Occult Blood NEG Urine Nitrite NEG Urine Bilirubin NEG Urine Urobilinogen LESS THAN 2.0 MG/DL Urine Leukocyte Esterase NEG Urine WBC 1 /hpf Urine Bacteria RARE /hpf Microscopic Urinalysis Comment CULT NOT INDICATED Iron Level 52 MCG/DL Total Iron Binding Capacity 197 MCG/DL Percent Iron Saturation 26.3 % Ferritin 415 NG/ML Ammonia 24 MCMOL/L Tumor Marker Alpha Fetoprotein 3.4 NG/ML Acetaminophen Level LESS THAN 2.0 MCG/ML Imaging Last Impressions Abdomen X-Ray 10/19/17 0000 Signed Impressions: Service Date/Time: Thursday, October 19, 2017 12:17 - CONCLUSION: 1. There are no findings to indicate small bowel obstruction but small bowel gas pattern is abnormal with a few mildly distended segments of small bowel in the left mid abdomen demonstrating air-fluid levels. Suggest followup to confirm resolution. 2. The liver appears enlarged and there is possible splenomegaly as well. Lyle Omalley MD Objective Remarks GENERAL: This is a well-nourished, well-developed patient, in no apparent distress. CARDIOVASCULAR: Tachycardic RESPIRATORY: Clear to auscultation. Breath sounds equal bilaterally. GASTROINTESTINAL: Abdomen soft, non-tender, distended. Liver margin below costal margin extends to the pelvic rim MUSCULOSKELETAL: Extremities without clubbing, cyanosis, or edema. No joint tenderness, effusion, or edema noted. No calf tenderness. Negative Homans sign bilaterally. NEUROLOGICAL: Awake and alert. No focal deficits noted. Motor and sensory grossly within normal limits. Five out of 5 muscle strength in all muscle groups. Normal speech. A/P Problem List: (1) Alcoholic cirrhosis ICD Codes: K70.30 - Alcoholic cirrhosis of liver without ascites Plan: Patient counselled on ETOH use, encouraged to abstain Quit drinking 2 days ago [facility] protocol Librium 10 mg PO BID, hold for sedation seizure precautions monitor for ss of withdraw hepatitis profile pending Consult GI Clear liquid diet Patient will need outpatient follow up with [facility] behavior health, discussed patient with [facility] complex case management Ani. (2) Leukocytosis ICD Codes: D72.829 - Elevated white blood cell count, unspecified Status: Acute Plan: WBC on admission 25.3 -> 21.1 (2/) Patient has no fever or chills CXR reviewed and reveals no acute disease UA reviewed no culture indicated BC obtained and pending Patient now endorses RUQ pain US gallbladder reviewed and reveals: Gallbladder wall thickening measuring up to 5 mm. Small amount of apparent pericholecystic fluid. echogenic sludge within the gallbladder as well as a calcified stone with posterior shadowing. Discussed with general surgery Dr. Thompson who will see patient in consult Start Zosyn monitor recheck CBC in AM (3) Acid reflux disease ICD Codes: K21.9 - Gastroesophageal reflux disease Status: Acute Plan: convert home Prilosec (4) Cholelithiasis ICD Codes: K80.20 - Calculus of gallbladder without cholecystitis without obstruction Plan: US gallbladder reviewed and reveals: Gallbladder wall thickening measuring up to 5 mm. Small amount of apparent pericholecystic fluid. echogenic sludge within the gallbladder as well as a calcified stone with posterior shadowing. Discussed with general surgery Dr. Thompson who will see patient in consult Start Zosyn monitor Assessment and Plan Patient examined. Assessment and plan formulated with Rosita Hobbs PA-C. I agree with the above. No fever. WBC 25k (10/19), 21k (10/20) GBUS (10/19) --> thickened GB, sludge Case d/w Dr. Thompson, General Surgery (10/20/17). He will consult. Start Zosyn. Repeat CBC in AM observe Pt denies agitation. Pt continues to receive scheduled librium 10mg BID. Problem Qualifiers (1) Leukocytosis: Qualified Codes: D72.825 - Bandemia Rosita Hobbs Oct 20, 2017 10:15 Jhony Elder DO Oct 20, 2017 14:15
[2017-10-20 11:39] LABS: HEPATITIS A AB IGM NEGATIVE (NEGATIVE); HEPATITIS B CORE AB IGM NEGATIVE (NEGATIVE); HEPATITIS B SURFACE ANTIGEN NEGATIVE (NEGATIVE); HEPATITIS C AB IgG NEGATIVE (NEGATIVE)
[2017-10-20 12:51] VITALS: BP 108/70; PULSE 105; RESP 16; TEMP 98.6; O2SAT 96
[2017-10-20] MEDS: PIPERACIL-TAZO 3.375 GM PREMIX 50 ML IV SCH ×2 (12:51→18:26)
--- NOTE | 2017-10-20 13:19 | HHI.GIFU ---
Subjective Remarks Pt sitting up in bed, in no apparent distress. Remains on clear liquids. Denies nausea, vomiting. (Nel Smith) Objective Vitals I&O Vital Signs Date Time Temp Pulse Resp B/P (MAP) Pulse Ox O2 Delivery O2 Flow Rate FiO2 10/20/17 12:51 98.6 105 16 108/70 (83) 96 10/20/17 08:56 97.1 94 16 102/60 (74) 95 10/20/17 05:14 98.8 101 18 99/61 (74) 97 10/20/17 00:00 103 10/20/17 00:00 98.8 101 20 103/66 (78) 98 10/19/17 20:00 98.2 99 20 107/66 (80) 96 10/19/17 16:02 10/19/17 16:00 98.0 108 17 116/74 (88) 91 I/O 10/19/17 10/19/17 10/19/17 10/20/17 10/20/17 10/20/17 07:00 15:00 23:00 07:00 15:00 23:00 Intake Total 240 ml 1780 ml Balance 240 ml 1780 ml Intake Oral 240 ml 780 ml IV Total 1000 ml # Voids 1 4 # Bowel Movements 0 Laboratory Laboratory Tests Test 10/19/17 21:14 10/20/17 05:38 10/20/17 10:17 Hepatitis A IgM Antibody NEGATIVE Hepatitis B Surface Antigen NEGATIVE Hepatitis B Core IgM Antibody NEGATIVE Hepatitis C Antibody NEGATIVE White Blood Count 21.3 Red Blood Count 3.23 Hemoglobin 11.2 Hematocrit 32.6 Mean Corpuscular Volume 101.0 Mean Corpuscular Hemoglobin 34.7 Mean Corpuscular Hemoglobin Concent 34.4 Red Cell Distribution Width 16.2 Platelet Count 330 Mean Platelet Volume 6.6 Neutrophils (%) (Auto) 88.9 Lymphocytes (%) (Auto) 5.2 Monocytes (%) (Auto) 3.6 Eosinophils (%) (Auto) 1.9 Basophils (%) (Auto) 0.4 Neutrophils # (Auto) 18.9 Lymphocytes # (Auto) 1.1 Monocytes # (Auto) 0.8 Eosinophils # (Auto) 0.4 Basophils # (Auto) 0.1 CBC Comment DIFF FINAL Differential Comment Blood Urea Nitrogen 3 Creatinine 0.29 Random Glucose 80 Total Protein 6.2 Albumin 2.5 Calcium Level 8.1 Alkaline Phosphatase 620 Aspartate Amino Transf (AST/SGOT) 134 Alanine Aminotransferase (ALT/SGPT) 54 Total Bilirubin 4.1 Sodium Level 137 Potassium Level 3.6 Chloride Level 103 Carbon Dioxide Level 25.5 Anion Gap 9 Estimat Glomerular Filtration Rate 256 Iron Level 52 Total Iron Binding Capacity 197 Percent Iron Saturation 26.3 Ferritin 415 Ammonia 24 Tumor Marker Alpha Fetoprotein 3.4 Acetaminophen Level LESS THAN 2.0 Urine Opiates Screen NEG Urine Barbiturates Screen NEG Urine Amphetamines Screen NEG Urine Benzodiazepines Screen NEG Urine Cocaine Screen NEG Urine Cannabinoids Screen NEG Date/Time Source Procedure Growth Status 10/19/17 10:45 Blood Peripheral Aerobic Blood Culture - Preliminary NO GROWTH IN 1 DAY Resulted 10/19/17 10:45 Blood Peripheral Anaerobic Blood Culture - Preliminary NO GROWTH IN 1 DAY Resulted Imaging Last Impressions Chest X-Ray 10/19/17 1416 Signed Impressions: Service Date/Time: Thursday, October 19, 2017 15:26 - CONCLUSION: No acute disease. Louis Hare MD Gall Bladder Ultrasound 10/19/17 0000 Signed Impressions: Service Date/Time: Thursday, October 19, 2017 14:22 - CONCLUSION: 1. Cholelithiasis and sludge with gallbladder wall thickening and apparent mild pericholecystic fluid. 2. No evidence of biliary obstruction. 3. The liver is enlarged with mild to moderate hepatic steatosis. 4. Small amount of ascitic fluid. Rob Ryan MD Abdomen X-Ray 10/19/17 0000 Signed Impressions: Service Date/Time: Thursday, October 19, 2017 12:17 - CONCLUSION: 1. There are no findings to indicate small bowel obstruction but small bowel gas pattern is abnormal with a few mildly distended segments of small bowel in the left mid abdomen demonstrating air-fluid levels. Suggest followup to confirm resolution. 2. The liver appears enlarged and there is possible splenomegaly as well. Lyle Omalley MD Abdomen Ultrasound 10/19/17 0000 Signed Impressions: Service Date/Time: Thursday, October 19, 2017 22:16 - CONCLUSION: Trace ascites is noted. Joaquim Haro MD Physical Exam HEENT:Normocephalic; atraumatic; (+) icterus CHEST: Even/unlabored CARDIAC: RRR ABDOMEN: Mildly distended, firm, nontender, bowel sounds active EXTREMITIES: mild BLE edema SKIN: Normal; no rash; no jaundice. ASSISTANCE REPRESENTATIVE: No focal deficits; alert and oriented times three. (Nel Smith) Assessment and Plan Plan - elevated LFTs, ascites, abd discomfort - likely etoh hepatitis. US shows gallstones and sludge, GB wall thickening, enlarged liver, fatty liver, no evidence biliary obstruction. previous CT 1 wk ago showed gallstones, abd fluid per pt. DF <32. attempted to call Dr Salomon's office for report but they must be gone for the day - leukocytosis - wbc 25.3 unclear source. afebrile - coagulopathy - INR 1.5 HH WNL - macrocytosis (2/) Pt sitting up in bed. Reports some RUQ abdominal pain. S/P abdominal US yesterday, ordered with paracentesis to rule out SBP, however, trace ascites not enough to drain. ? Gallbladder etiology for leukocytosis, pt on Zosyn per attending. some improvement in WBCs today. Mild improvement in LFTs. T bili 4.1, AST-134 ALT-54 Alk phos-620. DF- 20. No indications for steroids at this time. Etiology most likely alcohol hepatitis. Had a long discussion with patient regarding ETOH cessation, she reports she has not had any ETOH in two days and does not plan to continue drinking. Liver work up in process to rule out other causes. Hepatitis panel negative. AFP-3.4. Alpha-1 antitrypsin, Ceruloplasmin, ASMA, AMA, and SHABBIR pending. TIBC-197 %sat-26.3 Iron-52. Of note, pt recently evaluated by Dr. Gallo in the office, and had extensive work up. Will obtain records. PLAN - Liver work up pending - Will obtain office records - GS consult for ?cholecystitis per attending - ETOH cessation - Continue current supportive care - Further recommendations to follow based on results of above Pt has been seen and examined by myself and Dr. He and this note is written on his behalf. (Nel Smith) Physician Comments Seen and examined with ENA, egd planned for tomorrow. Surgery consultation pending. Outpt colonoscopy on the of this month. (Fernando He MD) Nel Smith Oct 20, 2017 13:19 Fernando He MD Oct 20, 2017 15:02
[2017-10-20] MEDS ORDERED: cloNIDine HCL 0.1 MG TAB PO PRN (18:15)
--- NOTE | 2017-10-20 18:22 | HHI.PR ---
Subjective Subjective Notes I'm been asked to see the patient, who is a 42-year-old lady with alcohol use disorder and right upper quadrant pain, to evaluate her for possible cholecystitis in the face of cholelithiasis and hepatic disease. At the time of my evaluation, the patient states that she has mild abdominal pain on both the right and left sides, slightly more on the right side in the upper abdomen. She states that she has been feeling bad for a number of weeks to months and has had poor appetite as well as increased alcohol intake over that period of time. She denies any nausea or vomiting. She had 1 episode of a temperature to 102 last week but has been afebrile since then. At the current time she has no other complaints other than being hungry and having mild discomfort in her upper abdomen as well as a feeling of significant fullness. Objective Vitals/I&O Vital Signs Date Time Temp Pulse Resp B/P (MAP) Pulse Ox O2 Delivery O2 Flow Rate FiO2 10/20/17 12:51 98.6 105 16 108/70 (83) 96 10/19/17 11:00 Room Air Labs Laboratory Tests Test 10/19/17 21:14 10/20/17 05:38 10/20/17 10:17 Hepatitis A IgM Antibody NEGATIVE Hepatitis B Surface Antigen NEGATIVE Hepatitis B Core IgM Antibody NEGATIVE Hepatitis C Antibody NEGATIVE White Blood Count 21.3 Red Blood Count 3.23 Hemoglobin 11.2 Hematocrit 32.6 Mean Corpuscular Volume 101.0 Mean Corpuscular Hemoglobin 34.7 Mean Corpuscular Hemoglobin Concent 34.4 Red Cell Distribution Width 16.2 Platelet Count 330 Mean Platelet Volume 6.6 Neutrophils (%) (Auto) 88.9 Lymphocytes (%) (Auto) 5.2 Monocytes (%) (Auto) 3.6 Eosinophils (%) (Auto) 1.9 Basophils (%) (Auto) 0.4 Neutrophils # (Auto) 18.9 Lymphocytes # (Auto) 1.1 Monocytes # (Auto) 0.8 Eosinophils # (Auto) 0.4 Basophils # (Auto) 0.1 CBC Comment DIFF FINAL Differential Comment Blood Urea Nitrogen 3 Creatinine 0.29 Random Glucose 80 Total Protein 6.2 Albumin 2.5 Calcium Level 8.1 Alkaline Phosphatase 620 Aspartate Amino Transf (AST/SGOT) 134 Alanine Aminotransferase (ALT/SGPT) 54 Total Bilirubin 4.1 Sodium Level 137 Potassium Level 3.6 Chloride Level 103 Carbon Dioxide Level 25.5 Anion Gap 9 Estimat Glomerular Filtration Rate 256 Iron Level 52 Total Iron Binding Capacity 197 Percent Iron Saturation 26.3 Ferritin 415 Ammonia 24 Tumor Marker Alpha Fetoprotein 3.4 Acetaminophen Level LESS THAN 2.0 Urine Opiates Screen NEG Urine Barbiturates Screen NEG Urine Amphetamines Screen NEG Urine Benzodiazepines Screen NEG Urine Cocaine Screen NEG Urine Cannabinoids Screen NEG Date/Time Source Procedure Growth Status 10/19/17 10:45 Blood Peripheral Aerobic Blood Culture - Preliminary NO GROWTH IN 1 DAY Resulted 10/19/17 10:45 Blood Peripheral Anaerobic Blood Culture - Preliminary NO GROWTH IN 1 DAY Resulted Radiology Last 72 hours Impressions Chest X-Ray 10/19/17 1416 Signed Impressions: Service Date/Time: Thursday, October 19, 2017 15:26 - CONCLUSION: No acute disease. Louis Hare MD Gall Bladder Ultrasound 10/19/17 0000 Signed Impressions: Service Date/Time: Thursday, October 19, 2017 14:22 - CONCLUSION: 1. Cholelithiasis and sludge with gallbladder wall thickening and apparent mild pericholecystic fluid. 2. No evidence of biliary obstruction. 3. The liver is enlarged with mild to moderate hepatic steatosis. 4. Small amount of ascitic fluid. Rbo Ryan MD Abdomen X-Ray 10/19/17 0000 Signed Impressions: Service Date/Time: Thursday, October 19, 2017 12:17 - CONCLUSION: 1. There are no findings to indicate small bowel obstruction but small bowel gas pattern is abnormal with a few mildly distended segments of small bowel in the left mid abdomen demonstrating air-fluid levels. Suggest followup to confirm resolution. 2. The liver appears enlarged and there is possible splenomegaly as well. Lyle Omalley MD Abdomen Ultrasound 10/19/17 0000 Signed Impressions: Service Date/Time: Thursday, October 19, 2017 22:16 - CONCLUSION: Trace ascites is noted. Joaqumi Haro MD Cardiovascular: Regular Lungs: Clear Narrative Exam Her abdomen is mildly distended and not tympanitic. She has minimal tenderness in the right upper quadrant with no guarding or rebound. She has an extremely full upper abdomen consistent with hepatomegaly. There is significant displacement of the other abdominal organs inferiorly and left laterally. She has minimal edema in the periphery. A/P Assessment and Plan Impression: 42-year-old lady with alcohol use disorder and cholelithiasis with mild pain and an elevated white blood count. There is no evidence for acute cholecystitis at this point. Plan: I agree with Dr. Elder in continuing Zosyn for now and to reevaluate her laboratory over the next day or 2. She is not presently a surgical candidate.. I have taken the liberty of discontinuing her Librium as she has a significant change in her liver function studies. I have placed her on when necessary Vistaril and clonidine in addition to the Ativan when necessary. If no further intervention is necessary at this hospitalization, plan to see her back in my office in the next 3 weeks. Hopefully she will be able to be discharged soon. I will be available should there be any need for surgical intervention. Yonis Thompson MD Oct 20, 2017 18:22
[2017-10-20 18:49] VITALS: BP 110/67; PULSE 100; RESP 14; TEMP 99; O2SAT 97
[2017-10-20 20:00] VITALS: BP 105/68; PULSE 104; RESP 20; TEMP 98.9; O2SAT 97
[2017-10-21] VITALS (8 sets, daily range): BP systolic 96–110; BP diastolic 58–72; PULSE 91–115; RESP 16–18; TEMP 97.1–100.4; O2SAT 94–98
[2017-10-21] MEDS: PIPERACIL-TAZO 3.375 GM PREMIX 50 ML IV SCH ×5 (00:47→23:48)
[2017-10-21] MEDS: NS + KCL 20 MEQ INJ 1,000 ML IV SCH (00:48)
[2017-10-21 05:59] LABS: AUTOMATED NEUTROPHIL # 17.1 TH/MM3 (1.8-7.7); BASOPHIL # 0.1 TH/MM3 (0-0.2); BASOPHIL % 0.5 % (0.0-2.0); EOSINOPHIL # 0.4 TH/MM3 (0-0.4); EOSINOPHIL % 2.1 % (0.0-4.0); HEMATOCRIT 30.9 % (35.0-46.0); HEMOGLOBIN 10.4 GM/DL (11.6-15.3); LYMPHOCYTE # 1.4 TH/MM3 (1.0-4.8); MEAN CORPUSCULAR HEMOGLOBIN 34.5 PG (27.0-34.0); MEAN CORPUSCULAR HGB CONC 33.8 % (32.0-36.0); MEAN PLATELET VOLUME 6.7 FL (7.0-11.0); MONO % 4.3 % (0.0-8.0); MONOCYTE # 0.8 TH/MM3 (0-0.9); NEUT % 86.1 % (16.0-70.0); PLATELET COUNT 307 TH/MM3 (150-450); RED BLOOD COUNT 3.03 MIL/MM3 (4.00-5.30); RED CELL DISTRIBUTION WIDTH 16.7 % (11.6-17.2); WHITE BLOOD COUNT 19.9 TH/MM3 (4.0-11.0)
[2017-10-21 06:16] LABS: ALBUMIN 2.1 GM/DL (3.4-5.0); AST (GOT) 114 U/L (15-37); BICARBONATE 24.7 MEQ/L (21.0-32.0); BLOOD UREA NITROGEN 2 MG/DL (7-18); CALCIUM 8.1 MG/DL (8.5-10.1); CHLORIDE 106 MEQ/L (98-107); CREATININE 0.33 MG/DL (0.50-1.00); GLOMERULAR FILTRATION RATE 221 ML/MIN (>89); GLUCOSE,RANDOM 69 MG/DL (74-106); SODIUM (NA) 139 MEQ/L (136-145)
[2017-10-21 06:18] LABS: ALKALINE PHOSPHATASE 523 U/L (45-117); ALT (GPT) 48 U/L (10-53); TOTAL BILIRUBIN ADULT 3.5 MG/DL (0.2-1.0); TOTAL PROTEIN 5.3 GM/DL (6.4-8.2)
[2017-10-21] MEDS: SODIUM CHLORIDE 0.9% FLUSH 10 ML FLUSH IV FLUSH SCH ×2 (08:20→21:01)
[2017-10-21] MEDS: THIAMINE HCL 100 MG TAB PO SCH (08:22)
[2017-10-21] MEDS: DOCUSATE SODIUM 50 MG/SENNA 8.6 MG TAB PO SCH ×2 (08:23→21:01)
[2017-10-21] MEDS: FOLIC ACID 1 MG TAB PO SCH (08:23)
[2017-10-21] MEDS: MULTIVITAMIN TAB PO SCH (08:23)
--- NOTE | 2017-10-21 11:14 | GIPROC ---
[facility] [address] [facility]. [facility], [id number] EGD PROCEDURE REPORT EXAM DATE: 10/21/2017 PATIENT NAME: Niecy Mercado MR #: [id number] BIRTHDATE: 1975 ATTENDING: Fernando He MD ORDER #: [id number] ELECTROMATIC TYPIST: Abril Zelaya and Faby Britt STATUS: inpatient INDICATIONS: The patient is a 42 yr old female here for an EGD due to epigastric abdominal pain PROCEDURE PERFORMED: EGD w/ biopsy MEDICATIONS: None and Per Anesthesia. TOPICAL ANESTHETIC: CONSENT: The patient understands the risks and benefits of the procedure and understands that these risks include, but are not limited to: sedation, allergic reaction, infection, perforation and/or bleeding. Alternative means of evaluation and treatment include, among others: physical exam, x-rays, and/or surgical intervention. The patient elects to proceed with this endoscopic procedure. medical equipment was checked for proper function. Hand hygiene and appropriate measures for infection prevention was taken. After the risks, benefits and alternatives of the procedure were thoroughly explained, Informed consent was verified, confirmed and timeout was successfully executed by the treatment team. The patient was anesthetized with topical anesthesia and the Pentax EG-[id number] endoscope was introduced through the mouth and advanced to the second portion of the duodenum. Retroflexed views revealed no abnormalities The gastroscope was then slowly withdrawn and removed. ESOPHAGUS: The mucosa of the esophagus appeared normal. STOMACH: There was chronic severe gastritis in the gastric antrum and gastric body. A biopsy was performed using cold forceps. Sample sent for histology. Moderate portal hypertensive gastropathy was found in the gastric fundus. DUODENUM: The duodenal mucosa appeared normal in the bulb and second portion of the duodenum. ADVERSE EVENTS: There were no complications. IMPRESSIONS: 1. The esophagus appeared normal 2. There was chronic gastritis in the gastric antrum and gastric body; biopsy was performed 3. Portal hypertensive gastropathy was found in the gastric fundus 4. Normal duodenal mucosa in the bulb and second portion of the duodenum 5. Retroflexed views revealed no abnormalities RECOMMENDATIONS: 1. Await biopsy results. Biopsy results will not be ready for 7-10 days. If you don't hear from us in two weeks, call our office for biopsy results. 2. Anti-reflux regimen 3. Continue PPI 4. Avoid NSAIDS 5. Consider HIDA scan PATIENT CONDITION: stable DISPOSITION: Inpatient REPEAT EXAM: Return 1 year EGD pending biopsy results Fernando He MD eSigned: Fernando He MD 10/21/2017 11:13 AM cc: PATIENT NAME: Niecy Mercado MR#: [id number]
--- NOTE | 2017-10-21 11:57 | HHI.PR ---
Subjective Remarks Patient returned to the floor s/p EGD which revealed severe gastritis Patient offers no new complaints Objective Vitals Vital Signs Date Time Temp Pulse Resp B/P (MAP) Pulse Ox O2 Delivery O2 Flow Rate FiO2 10/21/17 11:20 98.8 93 18 94/56 (69) 95 10/21/17 08:00 97.7 94 16 96/60 (72) 96 10/21/17 03:40 97.1 91 18 99/58 (72) 97 10/21/17 00:00 100.4 109 18 100/62 (75) 95 10/20/17 20:00 98.9 104 20 105/68 (80) 97 10/20/17 18:49 99.0 100 14 110/67 (81) 97 10/20/17 12:51 98.6 105 16 108/70 (83) 96 Result Diagram: 10/21/17 0510 10/21/17 0510 Other Results Laboratory Tests Test 10/19/17 11:10 10/19/17 12:00 10/19/17 21:14 10/20/17 05:38 White Blood Count 25.3 TH/MM3 21.3 TH/MM3 Red Blood Count 3.40 MIL/MM3 3.23 MIL/MM3 Hemoglobin 11.7 GM/DL 11.2 GM/DL Hematocrit 34.6 % 32.6 % Mean Corpuscular Volume 101.8 FL 101.0 FL Mean Corpuscular Hemoglobin 34.5 PG 34.7 PG Mean Corpuscular Hemoglobin Concent 33.8 % 34.4 % Red Cell Distribution Width 16.2 % 16.2 % Platelet Count 407 TH/MM3 330 TH/MM3 Mean Platelet Volume 7.0 FL 6.6 FL Neutrophils (%) (Auto) 88.8 % 88.9 % Lymphocytes (%) (Auto) 5.7 % 5.2 % Monocytes (%) (Auto) 3.6 % 3.6 % Eosinophils (%) (Auto) 1.5 % 1.9 % Basophils (%) (Auto) 0.4 % 0.4 % Neutrophils # (Auto) 22.4 TH/MM3 18.9 TH/MM3 Lymphocytes # (Auto) 1.4 TH/MM3 1.1 TH/MM3 Monocytes # (Auto) 0.9 TH/MM3 0.8 TH/MM3 Eosinophils # (Auto) 0.4 TH/MM3 0.4 TH/MM3 Basophils # (Auto) 0.1 TH/MM3 0.1 TH/MM3 CBC Comment AUTO DIFF DIFF FINAL Differential Total Cells Counted 100 Neutrophils % (Manual) 82 % Band Neutrophils % 12 % Monocytes % 4 % Eosinophils % 2 % Neutrophils # (Manual) 23.8 TH/MM3 Differential Comment FINAL DIFF MANUAL Toxic Vacuolation PRESENT Platelet Estimate NORMAL Platelet Morphology Comment NORMAL Prothrombin Time 15.4 SEC Prothromb Time International Ratio 1.5 RATIO Activated Partial Thromboplast Time 31.0 SEC Blood Urea Nitrogen 5 MG/DL 3 MG/DL Creatinine 0.37 MG/DL 0.29 MG/DL Random Glucose 115 MG/DL 80 MG/DL Total Protein 6.9 GM/DL 6.2 GM/DL Albumin 2.8 GM/DL 2.5 GM/DL Calcium Level 8.5 MG/DL 8.1 MG/DL Alkaline Phosphatase 684 U/L 620 U/L Aspartate Amino Transf (AST/SGOT) 138 U/L 134 U/L Alanine Aminotransferase (ALT/SGPT) 56 U/L 54 U/L Total Bilirubin 4.1 MG/DL 4.1 MG/DL Sodium Level 137 MEQ/L 137 MEQ/L Potassium Level 3.5 MEQ/L 3.6 MEQ/L Chloride Level 100 MEQ/L 103 MEQ/L Carbon Dioxide Level 28.1 MEQ/L 25.5 MEQ/L Anion Gap 9 MEQ/L 9 MEQ/L Estimat Glomerular Filtration Rate 193 ML/MIN 256 ML/MIN Lactic Acid Level 1.0 mmol/L Lipase 329 U/L Urine Color YELLOW Urine Turbidity CLEAR Urine pH 7.0 Urine Specific [place] 1.005 Urine Protein NEG mg/dL Urine Glucose (UA) NEG mg/dL Urine Ketones 10 mg/dL Urine Occult Blood NEG Urine Nitrite NEG Urine Bilirubin NEG Urine Urobilinogen LESS THAN 2.0 MG/DL Urine Leukocyte Esterase NEG Urine WBC 1 /hpf Urine Bacteria RARE /hpf Microscopic Urinalysis Comment CULT NOT INDICATED Hepatitis A IgM Antibody NEGATIVE Hepatitis B Surface Antigen NEGATIVE Hepatitis B Core IgM Antibody NEGATIVE Hepatitis C Antibody NEGATIVE Iron Level 52 MCG/DL Total Iron Binding Capacity 197 MCG/DL Percent Iron Saturation 26.3 % Ferritin 415 NG/ML Ammonia 24 MCMOL/L Tumor Marker Alpha Fetoprotein 3.4 NG/ML Acetaminophen Level LESS THAN 2.0 MCG/ML Test 10/20/17 10:17 10/21/17 05:10 Urine Opiates Screen NEG Urine Barbiturates Screen NEG Urine Amphetamines Screen NEG Urine Benzodiazepines Screen NEG Urine Cocaine Screen NEG Urine Cannabinoids Screen NEG White Blood Count 19.9 TH/MM3 Red Blood Count 3.03 MIL/MM3 Hemoglobin 10.4 GM/DL Hematocrit 30.9 % Mean Corpuscular Volume 102.0 FL Mean Corpuscular Hemoglobin 34.5 PG Mean Corpuscular Hemoglobin Concent 33.8 % Red Cell Distribution Width 16.7 % Platelet Count 307 TH/MM3 Mean Platelet Volume 6.7 FL Neutrophils (%) (Auto) 86.1 % Lymphocytes (%) (Auto) 7.0 % Monocytes (%) (Auto) 4.3 % Eosinophils (%) (Auto) 2.1 % Basophils (%) (Auto) 0.5 % Neutrophils # (Auto) 17.1 TH/MM3 Lymphocytes # (Auto) 1.4 TH/MM3 Monocytes # (Auto) 0.8 TH/MM3 Eosinophils # (Auto) 0.4 TH/MM3 Basophils # (Auto) 0.1 TH/MM3 CBC Comment DIFF FINAL Differential Comment Blood Urea Nitrogen 2 MG/DL Creatinine 0.33 MG/DL Random Glucose 69 MG/DL Total Protein 5.3 GM/DL Albumin 2.1 GM/DL Calcium Level 8.1 MG/DL Alkaline Phosphatase 523 U/L Aspartate Amino Transf (AST/SGOT) 114 U/L Alanine Aminotransferase (ALT/SGPT) 48 U/L Total Bilirubin 3.5 MG/DL Sodium Level 139 MEQ/L Potassium Level 3.7 MEQ/L Chloride Level 106 MEQ/L Carbon Dioxide Level 24.7 MEQ/L Anion Gap 8 MEQ/L Estimat Glomerular Filtration Rate 221 ML/MIN Imaging Last Impressions Abdomen X-Ray 10/19/17 0000 Signed Impressions: Service Date/Time: Thursday, October 19, 2017 12:17 - CONCLUSION: 1. There are no findings to indicate small bowel obstruction but small bowel gas pattern is abnormal with a few mildly distended segments of small bowel in the left mid abdomen demonstrating air-fluid levels. Suggest followup to confirm resolution. 2. The liver appears enlarged and there is possible splenomegaly as well. Lyle Omalley MD Objective Remarks GENERAL: This is a well-nourished, well-developed patient, in no apparent distress. CARDIOVASCULAR: regular rate and rhythm RESPIRATORY: Clear to auscultation. Breath sounds equal bilaterally. GASTROINTESTINAL: Abdomen soft, non-tender, distended. Liver margin below costal margin extends to the pelvic rim MUSCULOSKELETAL: Extremities without clubbing, cyanosis, or edema. No joint tenderness, effusion, or edema noted. No calf tenderness. Negative Homans sign bilaterally. NEUROLOGICAL: Awake and alert. No focal deficits noted. Motor and sensory grossly within normal limits. Five out of 5 muscle strength in all muscle groups. Normal speech. A/P Problem List: (1) Alcoholic cirrhosis ICD Codes: K70.30 - Alcoholic cirrhosis of liver without ascites Plan: Patient counselled on ETOH use, encouraged to abstain Quit drinking 2 days ago [facility]WA protocol Librium 10 mg PO BID, hold for sedation seizure precautions monitor for ss of withdraw hepatitis profile pending Consult GI EGD 10/21/17 revealed severe gastritis 1. The esophagus appeared normal 2. There was chronic gastritis in the gastric antrum and gastric body; biopsy was performed 3. Portal hypertensive gastropathy was found in the gastric fundus 4. Normal duodenal mucosa in the bulb and second portion of the duodenum 5. Retroflexed views revealed no abnormalities RECOMMENDATIONS per GI: 1. Await biopsy results. 2. Anti-reflux regimen 3. Continue PPI 4. Avoid NSAIDS 5. Consider HIDA scan REPEAT EXAM: Return 1 year EGD pending biopsy results Clear liquid diet Patient will need outpatient follow up with [facility] behavior health, discussed patient with [facility] complex case management Ani. (2) Leukocytosis ICD Codes: D72.829 - Elevated white blood cell count, unspecified Status: Acute Plan: WBC on admission 25.3 -> 21.1 (2/) -> 19.9 (2/2) T max 100.4 CXR reviewed and reveals no acute disease UA reviewed no culture indicated BC NGTD US gallbladder reviewed and reveals: Gallbladder wall thickening measuring up to 5 mm. Small amount of apparent pericholecystic fluid. echogenic sludge within the gallbladder as well as a calcified stone with posterior shadowing. Discussed with general surgery Dr. Thompson who will see patient in consult Curtis (10/20 - present monitor recheck CBC in AM (3) Acid reflux disease ICD Codes: K21.9 - Gastroesophageal reflux disease Status: Acute Plan: convert home Prilosec (4) Cholelithiasis ICD Codes: K80.20 - Calculus of gallbladder without cholecystitis without obstruction Plan: US gallbladder reviewed and reveals: Gallbladder wall thickening measuring up to 5 mm. Small amount of apparent pericholecystic fluid. echogenic sludge within the gallbladder as well as a calcified stone with posterior shadowing. Dr. Elder Discussed with general surgery Dr. Thompson 10/20 Curtis (10/20 - present) GI recommending consider HIDA scan, general surgery also following patient and does not feel patient is a surgical candidate at this time. monitor Assessment and Plan Patient examined. Assessment and plan formulated with Rosita Hobbs PA-C. I agree with the above. - EGD (10/21/17) showed severe gastritis - Pt started on PPI & carafate - observe leukocytosis - follow blood culture - continue zosyn Problem Qualifiers (1) Leukocytosis: Qualified Codes: D72.825 - Bandemia Rosita Hobbs Oct 21, 2017 11:57 Jhony Elder DO Oct 22, 2017 12:58
[2017-10-21] MEDS ORDERED: ePHEDrine/NS 25 MG/5 ML SYRINGE IV ONE (12:00)
[2017-10-21] MEDS ORDERED: LIDOCAINE HCL 1% PF 5 ML SYRINGE OTHER ONE (12:00)
[2017-10-21] MEDS ORDERED: PROPOFOL 200 MG/20 ML AMP IV ONE (12:00)
[2017-10-21] MEDS: PANTOPRAZOLE SOD 40 MG DELAYED RELEASE TAB PO SCH ×2 (12:25→21:01)
[2017-10-21] MEDS: SUCRALFATE 1 GM/10 ML CUP PO SCH ×3 (12:25→21:02)
[2017-10-21 13:40] LABS: SMOOTH MUSCLE TOTAL AUTOABS Negative (Negative)
[2017-10-21] MEDS ORDERED: DO NOT ADM ANY ANTICOAGULANT DRUGS PRN (14:00)
[2017-10-21 19:53] LABS: ALPHA-1-ANTITRYPSIN 215 mg/dL (100 - 190)
[2017-10-22] VITALS: BP 98/63; PULSE 111; RESP 18; TEMP 100.2; O2SAT 98
[2017-10-22 03:59] VITALS: BP 101/59; PULSE 96; RESP 18; TEMP 98.1; O2SAT 97
[2017-10-22] MEDS: PIPERACIL-TAZO 3.375 GM PREMIX 50 ML IV SCH ×4 (05:07→23:50)
[2017-10-22 07:14] LABS: AUTOMATED NEUTROPHIL # 16.3 TH/MM3 (1.8-7.7); BASOPHIL # 0.1 TH/MM3 (0-0.2); BASOPHIL % 0.5 % (0.0-2.0); EOSINOPHIL # 0.4 TH/MM3 (0-0.4); EOSINOPHIL % 2.3 % (0.0-4.0); HEMATOCRIT 31.2 % (35.0-46.0); HEMOGLOBIN 10.5 GM/DL (11.6-15.3); LYMPHOCYTE # 1.5 TH/MM3 (1.0-4.8); MEAN CELL VOLUME 101.6 FL (80.0-100.0); MEAN CORPUSCULAR HEMOGLOBIN 34.2 PG (27.0-34.0); MEAN CORPUSCULAR HGB CONC 33.6 % (32.0-36.0); MEAN PLATELET VOLUME 6.8 FL (7.0-11.0); MONO % 4.6 % (0.0-8.0); MONOCYTE # 0.9 TH/MM3 (0-0.9); NEUT % 84.6 % (16.0-70.0); PLATELET COUNT 303 TH/MM3 (150-450); RED BLOOD COUNT 3.07 MIL/MM3 (4.00-5.30); RED CELL DISTRIBUTION WIDTH 16.5 % (11.6-17.2); WHITE BLOOD COUNT 19.2 TH/MM3 (4.0-11.0)
[2017-10-22 07:25] LABS: ALBUMIN 2.1 GM/DL (3.4-5.0); ALT (GPT) 50 U/L (10-53); AST (GOT) 92 U/L (15-37); BICARBONATE 27.6 MEQ/L (21.0-32.0); BLOOD UREA NITROGEN 3 MG/DL (7-18); CALCIUM 7.8 MG/DL (8.5-10.1); CHLORIDE 107 MEQ/L (98-107); CREATININE 0.36 MG/DL (0.50-1.00); GLOMERULAR FILTRATION RATE 200 ML/MIN (>89); GLUCOSE,RANDOM 92 MG/DL (74-106); SODIUM (NA) 141 MEQ/L (136-145)
[2017-10-22 07:27] LABS: ALKALINE PHOSPHATASE 506 U/L (45-117); TOTAL BILIRUBIN ADULT 2.9 MG/DL (0.2-1.0); TOTAL PROTEIN 5.5 GM/DL (6.4-8.2)
[2017-10-22 08:00] VITALS: BP_SYST 79; BP_SYST 80; BP_DIAS 50; BP_DIAS 52; PULSE 94; RESP 16; TEMP 98.3; O2SAT 97
[2017-10-22] MEDS: PANTOPRAZOLE SOD 40 MG DELAYED RELEASE TAB PO SCH ×2 (09:18→20:19)
[2017-10-22] MEDS: THIAMINE HCL 100 MG TAB PO SCH (09:18)
[2017-10-22] MEDS: MULTIVITAMIN TAB PO SCH (09:18)
[2017-10-22] MEDS: FOLIC ACID 1 MG TAB PO SCH (09:18)
[2017-10-22] MEDS: DOCUSATE SODIUM 50 MG/SENNA 8.6 MG TAB PO SCH ×2 (09:19→20:19)
[2017-10-22] MEDS: SUCRALFATE 1 GM/10 ML CUP PO SCH ×4 (09:19→20:19)
[2017-10-22] MEDS: SODIUM CHLORIDE 0.9% FLUSH 10 ML FLUSH IV FLUSH SCH ×2 (09:19→20:19)
[2017-10-22] MEDS ORDERED: POTASSIUM CHLORIDE 20 MEQ CONTROLLED RELEASE TAB PO ONE (10:00)
[2017-10-22 12:00] VITALS: BP 106/67; PULSE 102; RESP 16; TEMP 97.1; O2SAT 98
[2017-10-22 12:50] LABS: INTERNATIONAL NORMALIZED RATIO 1.6 RATIO; PROTHROMBIN TIME - PATIENT 16.3 SEC (9.8-11.6)
[2017-10-22] MEDS: 1/2 NS + KCL 20 MEQ INJ 1,000 ML IV SCH ×5 (13:15→20:37)
--- NOTE | 2017-10-22 13:15 | HHI.PR ---
Subjective Remarks Called to the floor by nursing around 11AM d/t hypotension. 8AM BP reading 79/52 Repeat BP reading at 12PM 106/67. Pt did NOT sleep well last night. Pt stated that she "did NOT feel well" but NO specific complaints. Poor appetite today, but NO n/v/d. No c/o palpitations, fever, or chills. Objective Vitals Vital Signs Date Time Temp Pulse Resp B/P (MAP) Pulse Ox O2 Delivery O2 Flow Rate FiO2 10/22/17 12:00 97.1 102 16 106/67 (80) 98 10/22/17 08:00 98.3 94 16 79/52 (61) 97 80/50 (60) 10/22/17 03:59 98.1 96 18 101/59 (73) 97 10/22/17 00:00 100.2 111 18 98/63 (75) 98 10/21/17 23:45 106 10/21/17 20:00 100.1 115 18 104/67 (79) 98 10/21/17 17:10 95 21 10/21/17 16:00 98.4 108 16 109/72 (84) 95 Result Diagram: 10/22/17 0620 10/22/17 0620 Imaging Last Impressions Abdomen X-Ray 10/19/17 0000 Signed Impressions: Service Date/Time: Thursday, October 19, 2017 12:17 - CONCLUSION: 1. There are no findings to indicate small bowel obstruction but small bowel gas pattern is abnormal with a few mildly distended segments of small bowel in the left mid abdomen demonstrating air-fluid levels. Suggest followup to confirm resolution. 2. The liver appears enlarged and there is possible splenomegaly as well. Lyle Omalley MD Objective Remarks GENERAL: This is a well-nourished, well-developed patient, in no apparent distress. CARDIOVASCULAR: regular rate and rhythm RESPIRATORY: Clear to auscultation. Breath sounds equal bilaterally. GASTROINTESTINAL: Abdomen soft, non-tender, distended. Liver margin below costal margin extends to the pelvic rim MUSCULOSKELETAL: Extremities without clubbing, cyanosis, or edema. No joint tenderness, effusion, or edema noted. No calf tenderness. Negative Homans sign bilaterally. NEUROLOGICAL: Awake and alert. No focal deficits noted. Motor and sensory grossly within normal limits. Five out of 5 muscle strength in all muscle groups. Normal speech. A/P Problem List: (1) Hypotension ICD Codes: I95.9 - Hypotension, unspecified Status: Acute Plan: - possible early sepsis - Tmax = 100.2F at [place] (10/22) - WBC on admission 25.3 -> 21.1 (10/20) -> 19.9 (10/21), 19.2 - WBC 19.2 - Pt NOT tachycardic this AM, but some tachycardia overnight with fever. - CXR (10/19) --> no acute findings - UA (10/19) reviewed --> no culture indicated - Blood Cx (10/19) --> NGTD - US gallbladder (10/19) Gallbladder wall thickening measuring up to 5 mm. Small amount of apparent pericholecystic fluid. echogenic sludge within the gallbladder as well as a calcified stone with posterior shadowing. - Pt seen by General Surgery, Dr. Thompson (10/20) - case informally d/w CCM, Dr. Parekh (10/22) - obtain stat lactic acid - will bolus 2L 1/2NS KCL - obtain stat HIDA - case d/w IR, Dr. Sanders. Advised that may need cholecystostomy tube placement. - Consult placed for Infectious Disease - zosyromulo (10/20 - present) - await HIDA results (2) Alcoholic cirrhosis ICD Codes: K70.30 - Alcoholic cirrhosis of liver without ascites Plan: - comgmt with GI Patient counselled on ETOH use, encouraged to abstain Quit drinking 2 days ago [facility] protocol seizure precautions monitor for ss of withdraw hepatitis profile --> negative EGD 10/21/17 revealed severe gastritis 1. The esophagus appeared normal 2. There was chronic gastritis in the gastric antrum and gastric body; biopsy was performed 3. Portal hypertensive gastropathy was found in the gastric fundus 4. Normal duodenal mucosa in the bulb and second portion of the duodenum 5. Retroflexed views revealed no abnormalities RECOMMENDATIONS per GI: 1. Await biopsy results. 2. Anti-reflux regimen 3. Continue PPI 4. Avoid NSAIDS 5. Consider HIDA scan REPEAT EXAM: Return 1 year EGD pending biopsy results Patient will need outpatient follow up with [facility] health, discussed patient with [facility] complex case management Ani. - protonix 40mg BID - Carafate (3) Acid reflux disease ICD Codes: K21.9 - Gastroesophageal reflux disease Status: Acute Plan: - see above (4) Cholelithiasis ICD Codes: K80.20 - Calculus of gallbladder without cholecystitis without obstruction Plan: US gallbladder reviewed and reveals: Gallbladder wall thickening measuring up to 5 mm. Small amount of apparent pericholecystic fluid. echogenic sludge within the gallbladder as well as a calcified stone with posterior shadowing. - d/w Dr. Thompson 10/20/17. Pt not surgical candidate at this time. Curtis (10/20 - present) Assessment and Plan Problem Qualifiers (1) Hypotension: Qualified Codes: I95.9 - Hypotension, unspecified Jhony Elder DO Oct 22, 2017 13:15
[2017-10-22] MEDS ORDERED: SODIUM CHLOR 0.9% 250 ML INJ 250 ML IV ONE (14:45)
[2017-10-22] MEDS ORDERED: SINCALIDE 5 MCG/5 ML VIAL IV ONE (15:21)
--- NOTE | 2017-10-22 15:39 | RADRPT ---
EXAM DATE/TIME: 10/22/2017 12:54 [place] COMPARISON: US ABDOMEN - LOWER LIMITED, October 19, 2017, 22:16. INDICATIONS : Right upper quadrant pain. DOSE: 4.1 mCi Tc99m Mebrofenin IV MEDICATION: 1.1 mcg Cholecystokinin IV; No symptomatic response. Cholecystokinin was administered by slow infusion over 8 minutes beginning at 60 minutes. MEDICAL HISTORY : Cirrhosis. SURGICAL HISTORY : None. ENCOUNTER: Initial ACUITY: 1 month PAIN SCALE: 5/10 LOCATION: Right upper quadrant TECHNIQUE: Following the intravenous administration of radiotracer, dynamic sequential image were performed with continuous acquisition. Time-activity curves were generated. FINDINGS: HEPATIIC KINETICS: There is slightly delayed uptake by the hepatocytes probably due to some degree of hepatocellular dys function. BILIARY CLEARANCE: Activity is first seen in the extrahepatic biliary system at 20 minutes. There is normal excretion i nto the small bowel. GALLBLADDER: Activity is first seen in the gallbladder at 45 minutes. POST CHOLECYSTOKININ: After Cholecystokinin administration, there is no emptying from the gallbladder Common bile duct kine tics are normal and there is no evidence of biliary obstruction. BILIARY ENTERIC REFLUX: None observed. CLINICAL: The patient was asymptomatic after Cholecystokinin administration. 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 Joyce Humphrey MD on October 22, 2017 at 15:34 Board Certified Radiologist. This report was verified electronically.
[2017-10-22 16:00] VITALS: BP 105/69; PULSE 101; RESP 17; TEMP 96.9; O2SAT 99
--- NOTE | 2017-10-22 16:15 | PD.CONS ---
History of Present Illness Service Infectious disease Consult Requested By Dr Elder Reason for Consult Evaluate patient with possible sepsis, cholecystitis Primary Care Physician Benny Salomon MD Diagnoses: History of Present Illness Patient seen and examined. Records reviewed. Patient is a 42-year-old female, admitted to the hospital, after she was instructed by her primary care physician to get evaluation for abnormal blood work which included an elevated WBC, liver enzymes, and low red blood cells. Patient has had problem with abdominal distention, and fullness, mostly in her upper abdomen probably for the last month. She had visited an urgent care center, and was told that she had a urinary tract infection. Her distention did not improve, so she went to her primary care physician, and had some workup started. Imaging study showed fatty liver, but at that time the patient did not her her blood work done. She was apparently referred to a GI specialist, who saw her, and told her that she did not have fatty liver but she has cirrhosis and ascites. She was started on some medications by the GI for the cirrhosis and ascites. Patient went back to her primary care physician, and blood work was ordered. Her blood work showed an elevated WBC, liver function tests, and a low red blood cell. She was instructed to go to the hospital for further evaluation and treatment. Patient has been complaining of pain in her right upper quadrant and epigastric area. Has not had any nausea and vomiting. No problematic diarrhea. Denies any dysuria. She had an episode of fever about a week and a half ago. She denies any significant respiratory complaint. Workup done since admission showed an initial WBC of 25,000, and it's down to 19,000. Her LFTs are elevated, mostly the bilirubin, and alkaline phosphatase. Imaging studies showed abnormal liver, and gallstones. Surgery evaluated the patient and felt that she does not have any clinical evidence of acute cholecystitis. Patient also was seen by GI, and she underwent upper endoscopy which showed some gastritis, as well as portal hypertensive gastropathy. Esophagus was normal. Since admission she has had some low-grade temps. Today she had an episode of hypotension down to the mid 70s, and improved after 2 L of IV fluid. Patient stated that she's been tachycardic at least a month prior to admission. Infectious disease consultation has been requested to evaluate for possible sepsis. Since admission patient has been on Zosyn for biliary tract coverage. She is fairly asymptomatic as far as dizziness when she was hypotensive. She still feels tachycardic. HIDA scan was done and it did not show any findings of acute cholecystitis. She has findings compatible with hepatocellular disease, and possibly chronic cholecystitis. Review of Systems Constitutional: COMPLAINS OF: Fever, DENIES: Chills, Night Sweats Eyes: DENIES: Eye pain Ears, nose, mouth, throat: DENIES: Nasal discharge, Oral lesions, Throat pain, Ear Pain, Sinus Pain Respiratory: DENIES: Cough, Shortness of breath Cardiovascular: COMPLAINS OF: Palpitations, Lower Extremity Edema, DENIES: Chest pain, Syncope Gastrointestinal: COMPLAINS OF: Abdominal pain, DENIES: Diarrhea, Nausea, Vomiting, Difficulty Swallowing Genitourinary: DENIES: Urinary frequency, Hematuria, Dysuria Musculoskeletal: DENIES: Joint pain, Muscle aches, Back pain Integumentary: DENIES: Rash, Nipple discharge Hematologic/lymphatic: DENIES: Lymphadenopathy Neurologic: DENIES: Localized weakness Psychiatric: DENIES: Hallucinations Past Family Social History Allergies: Coded Allergies: Sulfa (Sulfonamide Antibiotics) (Unverified Allergy, Severe, Rash, 10/19/17 ) Past Medical History Hyperlipidemia Elevated liver enzymes IBS ETOH abuse, quit drinking 2 days ago Past Surgical History Precancerous mole removed left upper arm Active Ordered Medications Current Medications Zosyn Medications (Trade) Dose Ordered Sig/Maritza Route Start Time Stop Time Status Last Admin (NS Flush) 2 ml UNSCH PRN IV FLUSH 10/19/17 14:30 (NS Flush) 2 ml BID IV FLUSH 10/19/17 21:00 10/22/17 09:19 (Zofran Inj) 4 mg Q6H PRN IVP 10/19/17 14:30 (Narcan Inj) 0.4 mg UNSCH PRN IV PUSH 10/19/17 14:30 (Milk Of Magnesia Liq) 30 ml Q12H PRN PO 10/19/17 14:30 (Romazicon Inj) 0.2 mg Q1M PRN IV PUSH 10/19/17 14:30 (Ativan) 1 mg Q4H PRN PO 10/19/17 14:30 (Ativan Inj) 1 mg Q4H PRN IV PUSH 10/19/17 14:30 (Ativan) 2 mg Q2H PRN PO 10/19/17 14:30 (Ativan Inj) 2 mg Q2H PRN IV PUSH 10/19/17 14:30 (Ativan Inj) 2 mg Q1H PRN IV PUSH 10/19/17 14:30 (Ativan Inj) 2 mg Q15M PRN IV PUSH 10/19/17 14:30 (Belen-Colace) 1 tab BID PO 10/19/17 21:00 10/22/17 09:19 (Theragran) 1 tab DAILY PO 10/20/17 09:00 10/22/17 09:18 (Vitamin B1) 100 mg DAILY PO 10/20/17 09:00 10/22/17 09:18 (Folate) 1 mg DAILY PO 10/20/17 09:00 10/22/17 09:18 Piperacillin Sod/ Tazobactam Sod 50 ml @ 100 mls/hr Q6HR IV 10/20/17 12:00 10/22/17 11:22 (Catapres) 0.1 mg Q6H PRN PO 10/20/17 18:15 (Vistaril) 50 mg Q6H PRN PO 10/20/17 18:15 10/21/17 00:46 (Carafate Liq) 1 gm ACHS PO 10/21/17 12:00 10/22/17 11:22 (Protonix) 40 mg Q12HR PO 10/21/17 13:00 10/22/17 09:18 Potassium Chloride/Sodium Chloride 1,000 ml @ 125 mls/hr Q8H IV 10/22/17 11:30 Family History Non-contributory Social History History of EtOH use usually drinks 1 large bottle of wine per day and quit drinking 2 days ago Denies tobacco use or illicit drug use Physical Exam Vital Signs Vital Signs Date Time Temp Pulse Resp B/P (MAP) Pulse Ox O2 Delivery O2 Flow Rate FiO2 10/22/17 12:00 97.1 102 16 106/67 (80) 98 10/22/17 08:00 98.3 94 16 79/52 (61) 97 80/50 (60) 10/22/17 03:59 98.1 96 18 101/59 (73) 97 10/22/17 00:00 100.2 111 18 98/63 (75) 98 10/21/17 23:45 106 2/2/18 20:00 100.1 115 18 104/67 (79) 98 10/21/17 17:10 95 21 10/21/17 16:00 98.4 108 16 109/72 (84) 95 Physical Exam GENERAL: Patient is a thin, well-developed female, awake and alert, not in respiratory distress. SKIN: Warm and dry. No generalized rash, no ecchymoses and no evidence of embolic lesions. Has spider angiomatas in her upper chest and arms HEAD: Atraumatic. Normocephalic. No temporal wasting, or tenderness. EYES: [place] conjunctiva. No petechia or hemorrhage. Pupils equal, round and reactive to light. Extraocular movements full and intact. Has scleral icterus. No injection or drainage. EARS, NOSE AND THROAT: Nose without bleeding or purulent nasal discharge. No sinus tenderness. Mucous membranes pink and moist. No oral lesions noted. NECK: Trachea midline. Supple and not tender, no meningeal signs CARDIOVASCULAR: Regular rate and rhythm. No murmurs, rubs or gallops heard RESPIRATORY: Clear to auscultation. Breath sounds equal bilaterally. No rales , wheezing or rhonchi ABDOMEN: Soft, mildly distended, tender in RUQ. Her liver is enlarged and tender on palpation. Bowel sounds present and normoactive. No guarding. No rebound. EXTREMITIES: No clubbing, cyanosis, or edema.No joint effusion, has good ROM. No calf tenderness. Well perfused and warm. NEUROLOGICAL: Awake and alert. Cranial nerves grossly intact. Motor grossly within normal limits. PSYCHIATRIC: Normal affect, calm and cooperative. LINE: No evidence of infection Laboratory Laboratory Tests Test 10/22/17 06:20 10/22/17 12:22 White Blood Count 19.2 Red Blood Count 3.07 Hemoglobin 10.5 Hematocrit 31.2 Mean Corpuscular Volume 101.6 Mean Corpuscular Hemoglobin 34.2 Mean Corpuscular Hemoglobin Concent 33.6 Red Cell Distribution Width 16.5 Platelet Count 303 Mean Platelet Volume 6.8 Neutrophils (%) (Auto) 84.6 Lymphocytes (%) (Auto) 8.0 Monocytes (%) (Auto) 4.6 Eosinophils (%) (Auto) 2.3 Basophils (%) (Auto) 0.5 Neutrophils # (Auto) 16.3 Lymphocytes # (Auto) 1.5 Monocytes # (Auto) 0.9 Eosinophils # (Auto) 0.4 Basophils # (Auto) 0.1 CBC Comment DIFF FINAL Differential Comment Blood Urea Nitrogen 3 Creatinine 0.36 Random Glucose 92 Total Protein 5.5 Albumin 2.1 Calcium Level 7.8 Magnesium Level 2.0 Alkaline Phosphatase 506 Aspartate Amino Transf (AST/SGOT) 92 Alanine Aminotransferase (ALT/SGPT) 50 Total Bilirubin 2.9 Sodium Level 141 Potassium Level 3.3 Chloride Level 107 Carbon Dioxide Level 27.6 Anion Gap 6 Estimat Glomerular Filtration Rate 200 Prothrombin Time 16.3 Prothromb Time International Ratio 1.6 Activated Partial Thromboplast Time 31.7 Lactic Acid Level 1.7 Date/Time Source Procedure Growth Status 10/19/17 10:45 Blood Peripheral Aerobic Blood Culture - Preliminary NO GROWTH IN 3 DAYS Resulted 10/19/17 10:45 Blood Peripheral Anaerobic Blood Culture - Preliminary NO GROWTH IN 3 DAYS Resulted Result Diagram: 10/22/17 0620 10/22/17 0620 Imaging RADIOLOGY STUDIES/FILMS REVIEWED Hepatobiliary Scan Nuclear Medicine 10/22/17 0000 Signed Impressions: Service Date/Time: Sunday, October 22, 2017 12:54 - CONCLUSION: Diminished hepatocellular function and not much emptying from the gallbladder could be seen with chronic cholecystitis. Joyce Humphrey MD Chest X-Ray 10/19/17 1416 Signed Impressions: Service Date/Time: Thursday, October 19, 2017 15:26 - CONCLUSION: No acute disease. Louis Hare MD Gall Bladder Ultrasound 10/19/17 0000 Signed Impressions: Service Date/Time: Thursday, October 19, 2017 14:22 - CONCLUSION: 1. Cholelithiasis and sludge with gallbladder wall thickening and apparent mild pericholecystic fluid. 2. No evidence of biliary obstruction. 3. The liver is enlarged with mild to moderate hepatic steatosis. 4. Small amount of ascitic fluid. Rob Ryan MD Abdomen X-Ray 10/19/17 0000 Signed Impressions: Service Date/Time: Thursday, October 19, 2017 12:17 - CONCLUSION: 1. There are no findings to indicate small bowel obstruction but small bowel gas pattern is abnormal with a few mildly distended segments of small bowel in the left mid abdomen demonstrating air-fluid levels. Suggest followup to confirm resolution. 2. The liver appears enlarged and there is possible splenomegaly as well. Lyle Omalley MD Abdomen Ultrasound 10/19/17 0000 Signed Impressions: Service Date/Time: Thursday, October 19, 2017 22:16 - CONCLUSION: Trace ascites is noted. Joaquim Haro MD Assessment and Plan Assessment and Plan IMPRESSION ?Sepsis, with episode of hypotension, tachycardia, elevated lactic acid - source? - has gallstones but clinically no evidence of acute cholecystitis - HIDA C/W chronic renee, hepatocellular dysfunction - CXR ok, no respiratory complaints - No complaints ETOH hepatitis, with ETOH liver cirrhosis - has portal gastropathy, and has skin findings of chronic liver disease RECOMMENDATION Repeat BC with next temp spike She is on Zosyn and will continue for now If no change and stable, consider stopping Abx next day or two Follow CBC Follow temps Monitor progress I will follow along with you Thank you for this consultation Discussed Condition With D/W Martha Mcneill MD Oct 22, 2017 16:15
[2017-10-22 20:00] VITALS: BP 101/66; PULSE 100; PULSE 102; RESP 18; TEMP 98.9; O2SAT 98
[2017-10-23] VITALS (8 sets, daily range): BP systolic 99–106; BP diastolic 57–75; PULSE 89–98; RESP 16–18; TEMP 97.3–99.5; O2SAT 95–98
[2017-10-23 03:50] LABS: MITOCHONDRIAL ABS LESS THAN 20.0 U (<=20.0)
[2017-10-23] MEDS: PIPERACIL-TAZO 3.375 GM PREMIX 50 ML IV SCH ×2 (05:06→11:27)
[2017-10-23 06:40] LABS: AUTOMATED NEUTROPHIL # 14.2 TH/MM3 (1.8-7.7); BASOPHIL # 0.1 TH/MM3 (0-0.2); BASOPHIL % 0.7 % (0.0-2.0); EOSINOPHIL # 0.3 TH/MM3 (0-0.4); EOSINOPHIL % 1.9 % (0.0-4.0); HEMATOCRIT 32.7 % (35.0-46.0); HEMOGLOBIN 10.9 GM/DL (11.6-15.3); LYMPH % 7.4 % (9.0-44.0); LYMPHOCYTE # 1.2 TH/MM3 (1.0-4.8); MEAN CELL VOLUME 103.4 FL (80.0-100.0); MEAN CORPUSCULAR HEMOGLOBIN 34.6 PG (27.0-34.0); MEAN CORPUSCULAR HGB CONC 33.4 % (32.0-36.0); MEAN PLATELET VOLUME 6.8 FL (7.0-11.0); MONO % 4.6 % (0.0-8.0); MONOCYTE # 0.8 TH/MM3 (0-0.9); NEUT % 85.4 % (16.0-70.0); PLATELET COUNT 289 TH/MM3 (150-450); RED BLOOD COUNT 3.16 MIL/MM3 (4.00-5.30); WHITE BLOOD COUNT 16.6 TH/MM3 (4.0-11.0)
[2017-10-23 07:04] LABS: ALBUMIN 2.3 GM/DL (3.4-5.0); AST (GOT) 100 U/L (15-37); BLOOD UREA NITROGEN 3 MG/DL (7-18); CALCIUM 8.3 MG/DL (8.5-10.1); CHLORIDE 106 MEQ/L (98-107); CREATININE 0.42 MG/DL (0.50-1.00); GLOMERULAR FILTRATION RATE 167 ML/MIN (>89); GLUCOSE,RANDOM 94 MG/DL (74-106); SODIUM (NA) 139 MEQ/L (136-145)
[2017-10-23 07:05] LABS: ALT (GPT) 52 U/L (10-53)
[2017-10-23 07:07] LABS: ALKALINE PHOSPHATASE 517 U/L (45-117); TOTAL BILIRUBIN ADULT 2.8 MG/DL (0.2-1.0); TOTAL PROTEIN 5.9 GM/DL (6.4-8.2)
[2017-10-23] MEDS: FOLIC ACID 1 MG TAB PO SCH (08:28)
[2017-10-23] MEDS: SODIUM CHLORIDE 0.9% FLUSH 10 ML FLUSH IV FLUSH SCH ×2 (08:28→20:55)
[2017-10-23] MEDS: SUCRALFATE 1 GM/10 ML CUP PO SCH ×4 (08:28→20:55)
[2017-10-23] MEDS: PANTOPRAZOLE SOD 40 MG DELAYED RELEASE TAB PO SCH ×2 (08:29→20:55)
[2017-10-23] MEDS: DOCUSATE SODIUM 50 MG/SENNA 8.6 MG TAB PO SCH (08:29)
[2017-10-23] MEDS: THIAMINE HCL 100 MG TAB PO SCH (08:30)
[2017-10-23] MEDS: MULTIVITAMIN TAB PO SCH ×2 (08:34→08:39)
--- NOTE | 2017-10-23 10:11 | HHI.GIFU ---
Subjective Remarks Patient just finished taking a shower, doing good, no nausea no vomiting, had a Bm this morning, no bleeding reported (GaganRomerosamaria SUTHERLAND) Objective Vitals I&O Vital Signs Date Time Temp Pulse Resp B/P (MAP) Pulse Ox O2 Delivery O2 Flow Rate FiO2 10/23/17 09:55 97 10/23/17 08:00 98.1 94 16 102/67 (79) 97 10/23/17 04:06 99.1 98 17 99/59 (72) 98 10/23/17 00:20 99.5 90 17 101/62 (75) 96 10/22/17 20:00 98.9 100 18 101/66 (78) 98 10/22/17 20:00 102 10/22/17 16:00 96.9 101 17 105/69 (81) 99 10/22/17 12:00 97.1 102 16 106/67 (80) 98 I/O 10/22/17 10/22/17 10/22/17 10/23/17 10/23/17 10/23/17 07:00 15:00 23:00 07:00 15:00 23:00 Intake Total 2290 ml 100 ml Balance 2290 ml 100 ml Intake Oral 240 ml IV Total 2050 ml 100 ml # Voids 5 6 4 # Bowel Movements 0 0 Laboratory Laboratory Tests Test 10/22/17 12:22 10/22/17 18:42 10/23/17 05:10 Prothrombin Time 16.3 Prothromb Time International Ratio 1.6 Activated Partial Thromboplast Time 31.7 Lactic Acid Level 1.7 1.9 White Blood Count 16.6 Red Blood Count 3.16 Hemoglobin 10.9 Hematocrit 32.7 Mean Corpuscular Volume 103.4 Mean Corpuscular Hemoglobin 34.6 Mean Corpuscular Hemoglobin Concent 33.4 Red Cell Distribution Width 17.0 Platelet Count 289 Mean Platelet Volume 6.8 Neutrophils (%) (Auto) 85.4 Lymphocytes (%) (Auto) 7.4 Monocytes (%) (Auto) 4.6 Eosinophils (%) (Auto) 1.9 Basophils (%) (Auto) 0.7 Neutrophils # (Auto) 14.2 Lymphocytes # (Auto) 1.2 Monocytes # (Auto) 0.8 Eosinophils # (Auto) 0.3 Basophils # (Auto) 0.1 CBC Comment DIFF FINAL Differential Comment Blood Urea Nitrogen 3 Creatinine 0.42 Random Glucose 94 Total Protein 5.9 Albumin 2.3 Calcium Level 8.3 Alkaline Phosphatase 517 Aspartate Amino Transf (AST/SGOT) 100 Alanine Aminotransferase (ALT/SGPT) 52 Total Bilirubin 2.8 Sodium Level 139 Potassium Level 3.6 Chloride Level 106 Carbon Dioxide Level 27.0 Anion Gap 6 Estimat Glomerular Filtration Rate 167 Date/Time Source Procedure Growth Status 10/19/17 10:45 Blood Peripheral Aerobic Blood Culture - Preliminary NO GROWTH IN 3 DAYS Resulted 10/19/17 10:45 Blood Peripheral Anaerobic Blood Culture - Preliminary NO GROWTH IN 3 DAYS Resulted Imaging Last Impressions Hepatobiliary Scan Nuclear Medicine 10/22/17 0000 Signed Impressions: Service Date/Time: Sunday, October 22, 2017 12:54 - CONCLUSION: Diminished hepatocellular function and not much emptying from the gallbladder could be seen with chronic cholecystitis. Joyce Humphrey MD Chest X-Ray 10/19/17 1416 Signed Impressions: Service Date/Time: Thursday, October 19, 2017 15:26 - CONCLUSION: No acute disease. Louis Hare MD Gall Bladder Ultrasound 10/19/17 0000 Signed Impressions: Service Date/Time: Thursday, October 19, 2017 14:22 - CONCLUSION: 1. Cholelithiasis and sludge with gallbladder wall thickening and apparent mild pericholecystic fluid. 2. No evidence of biliary obstruction. 3. The liver is enlarged with mild to moderate hepatic steatosis. 4. Small amount of ascitic fluid. Rob Ryan MD Abdomen X-Ray 10/19/17 0000 Signed Impressions: Service Date/Time: Thursday, October 19, 2017 12:17 - CONCLUSION: 1. There are no findings to indicate small bowel obstruction but small bowel gas pattern is abnormal with a few mildly distended segments of small bowel in the left mid abdomen demonstrating air-fluid levels. Suggest followup to confirm resolution. 2. The liver appears enlarged and there is possible splenomegaly as well. Lyle Omalley MD Abdomen Ultrasound 10/19/17 0000 Signed Impressions: Service Date/Time: Thursday, October 19, 2017 22:16 - CONCLUSION: Trace ascites is noted. Joaquim Haro MD Physical Exam HEENT:Normocephalic; atraumatic; (+) icterus CHEST: Even/unlabored CARDIAC: RRR ABDOMEN: Mildly distended, soft, nontender, bowel sounds active EXTREMITIES: mild BLE edema SKIN: Normal; no rash; no jaundice. DEVELOPER SUPPORT ENGINEER: No focal deficits; alert and oriented times three. (Almas Farah) Assessment and Plan Plan - elevated LFTs, ascites, abd discomfort - likely etoh hepatitis. US shows gallstones and sludge, GB wall thickening, enlarged liver, fatty liver, no evidence biliary obstruction. previous CT 1 wk ago showed gallstones, abd fluid per pt. DF <32. attempted to call Dr Salomon's office for report but they must be gone for the day - leukocytosis - wbc 25.3 unclear source. afebrile - coagulopathy - INR 1.5 HH WNL - macrocytosis (10/20) Pt sitting up in bed. Reports some RUQ abdominal pain. S/P abdominal US yesterday, ordered with paracentesis to rule out SBP, however, trace ascites not enough to drain. ? Gallbladder etiology for leukocytosis, pt on Zosyn per attending. some improvement in WBCs today. Mild improvement in LFTs. T bili 4.1, AST-134 ALT-54 Alk phos-620. DF- 20. No indications for steroids at this time. Etiology most likely alcohol hepatitis. Had a long discussion with patient regarding ETOH cessation, she reports she has not had any ETOH in two days and does not plan to continue drinking. Liver work up in process to rule out other causes. Hepatitis panel negative. AFP-3.4. Alpha-1 antitrypsin, Ceruloplasmin, ASMA, AMA, and SHABBIR pending. TIBC-197 %sat-26.3 Iron-52. Of note, pt recently evaluated by Dr. Gallo in the office, and had extensive work up. Will obtain records. 10/23/17 LFTs slight elevation today but stable, clinically patient doing good Negative SHABBIR, ASMA, AMA, negative hepatitis panel, alpha 1 antitrypsin 215, Ceruloplasmin p, Fe 415, iron saturation 26.3, WBC trending down patient is s/p GS eval with no recommendation for surgical intervention PLAN - Patient is scheduled for OP colonoscopy - S/P GS consult for chronic cholecystitis with no recommendation for surgical intervention - ETOH cessation, this was stressed with patient and she states this is a wake up call and she plans to change her life around - okay to DC home from GI stand point - F/u with GI in 2 weeks Pt has been seen and examined by myself and Dr. He and this note is written on his behalf. (Almas Farah) Physician Comments Seen and examined with ENA, BONNY noted. Dr. Thompson consulted. Fu GI and GS upon dc please. Gastric biopsies -p. (Fernando He MD) Almas Farah Oct 23, 2017 10:11 Fernando He MD Oct 23, 2017 10:37
[2017-10-23] MEDS: 1/2 NS + KCL 20 MEQ INJ 1,000 ML IV SCH (11:29)
--- NOTE | 2017-10-23 13:36 | HHI.PR ---
Subjective Remarks Pt has NO new complaints. Pt is tolerating PO intake. Pt denies n/v/d. Pt denies tremor or visual hallucinations. Objective Vitals Vital Signs Date Time Temp Pulse Resp B/P (MAP) Pulse Ox O2 Delivery O2 Flow Rate FiO2 10/23/17 12:00 97.3 89 17 104/69 (81) 98 10/23/17 09:55 97 10/23/17 08:00 98.1 94 16 102/67 (79) 97 10/23/17 04:06 99.1 98 17 99/59 (72) 98 10/23/17 00:20 99.5 90 17 101/62 (75) 96 10/22/17 20:00 98.9 100 18 101/66 (78) 98 10/22/17 20:00 102 10/22/17 16:00 96.9 101 17 105/69 (81) 99 Result Diagram: 10/23/17 0510 10/23/17 0510 Imaging Last Impressions Hepatobiliary Scan Nuclear Medicine 10/22/17 0000 Signed Impressions: Service Date/Time: Sunday, October 22, 2017 12:54 - CONCLUSION: Diminished hepatocellular function and not much emptying from the gallbladder could be seen with chronic cholecystitis. Joyce Humphrey MD Chest X-Ray 10/19/17 1416 Signed Impressions: Service Date/Time: Thursday, October 19, 2017 15:26 - CONCLUSION: No acute disease. Louis Hare MD Gall Bladder Ultrasound 10/19/17 0000 Signed Impressions: Service Date/Time: Thursday, October 19, 2017 14:22 - CONCLUSION: 1. Cholelithiasis and sludge with gallbladder wall thickening and apparent mild pericholecystic fluid. 2. No evidence of biliary obstruction. 3. The liver is enlarged with mild to moderate hepatic steatosis. 4. Small amount of ascitic fluid. Rob Ryan MD Abdomen X-Ray 10/19/17 0000 Signed Impressions: Service Date/Time: Thursday, October 19, 2017 12:17 - CONCLUSION: 1. There are no findings to indicate small bowel obstruction but small bowel gas pattern is abnormal with a few mildly distended segments of small bowel in the left mid abdomen demonstrating air-fluid levels. Suggest followup to confirm resolution. 2. The liver appears enlarged and there is possible splenomegaly as well. Lyle Omalley MD Abdomen Ultrasound 10/19/17 0000 Signed Impressions: Service Date/Time: Thursday, October 19, 2017 22:16 - CONCLUSION: Trace ascites is noted. Joaquim Haro MD Objective Remarks GENERAL: This is a well-nourished, well-developed patient, in no apparent distress. CARDIOVASCULAR: regular rate and rhythm RESPIRATORY: Clear to auscultation. Breath sounds equal bilaterally. GASTROINTESTINAL: Abdomen soft, non-tender, distended. Liver margin below costal margin extends to the pelvic rim MUSCULOSKELETAL: Extremities without clubbing, cyanosis, or edema. No joint tenderness, effusion, or edema noted. No calf tenderness. Negative Homans sign bilaterally. NEUROLOGICAL: Awake and alert. No focal deficits noted. Motor and sensory grossly within normal limits. Five out of 5 muscle strength in all muscle groups. Normal speech. A/P Problem List: (1) Hypotension ICD Codes: I95.9 - Hypotension, unspecified Status: Acute Plan: - comgmt with ID - findings NOT c/w sepsis - afebrile since MN (10/22) - hypotension resolved - tele: NSR - WBC on admission 25.3 -> 21.1 (10/20) -> 19.9 (2/2), 19.2 (/), 16.6 (10/23) - CXR (10/19) --> no acute findings - UA (10/19) reviewed --> no culture indicated - Blood Cx (10/19) --> NGTD - US gallbladder (10/19) Gallbladder wall thickening measuring up to 5 mm. Small amount of apparent pericholecystic fluid. echogenic sludge within the gallbladder as well as a calcified stone with posterior shadowing. - HIDA (10/22) Diminished hepatocellular function and not much emptying from the gallbladder could be seen with chronic cholecystitis. - Pt seen by General Surgery, Dr. Thompson (10/20) - case informally d/w CCM, Dr. Parekh (10/22) - lactic acid 1.7, 1.9 - zosyn (10/20 - 10/23). Observe off zosyn - Case d/w ID, Dr. Sandoval, (10/23). At this point doubt infectious etiology of leukocytosis. Probably d/t acute alcoholic hepatitis. - repeat CBC, CMP, Mag in AM - DVT prophylaxis - anticipate d/c to home 10/24/17 (2) Alcoholic cirrhosis ICD Codes: K70.30 - Alcoholic cirrhosis of liver without ascites Plan: - comgmt with GI Patient counselled on ETOH use, encouraged to abstain Quit drinking 2 days ago [facility] protocol seizure precautions monitor for ss of withdraw hepatitis profile --> negative EGD 10/21/17 revealed severe gastritis 1. The esophagus appeared normal 2. There was chronic gastritis in the gastric antrum and gastric body; biopsy was performed 3. Portal hypertensive gastropathy was found in the gastric fundus 4. Normal duodenal mucosa in the bulb and second portion of the duodenum 5. Retroflexed views revealed no abnormalities RECOMMENDATIONS per GI: 1. Await biopsy results. 2. Anti-reflux regimen 3. Continue PPI 4. Avoid NSAIDS 5. Consider HIDA scan REPEAT EXAM: Return 1 year EGD pending biopsy results Patient will need outpatient follow up with [facility] health, discussed patient with [facility] complex case management Ani. - protonix 40mg BID - Carafate (3) Acid reflux disease ICD Codes: K21.9 - Gastroesophageal reflux disease Status: Acute Plan: - see above (4) Cholelithiasis ICD Codes: K80.20 - Calculus of gallbladder without cholecystitis without obstruction Plan: - see above Assessment and Plan Problem Qualifiers (1) Hypotension: Qualified Codes: I95.9 - Hypotension, unspecified Jhony Elder DO Oct 23, 2017 13:36
--- NOTE | 2017-10-23 15:41 | HHI.IDPN ---
Subjective Subjective Remarks Patient is a 42-year-old female, admitted to the hospital, after she was instructed by her primary care physician to get evaluation for abnormal blood work which included an elevated WBC, liver enzymes, and low red blood cells. Patient has had problem with abdominal distention, and fullness, mostly in her upper abdomen probably for the last month. She had visited an urgent care center, and was told that she had a urinary tract infection. Her distention did not improve, so she went to her primary care physician, and had some workup started. Imaging study showed fatty liver, but at that time the patient did not her her blood work done. She was apparently referred to a GI specialist, who saw her, and told her that she did not have fatty liver but she has cirrhosis and ascites. She was started on some medications by the GI for the cirrhosis and ascites. Patient went back to her primary care physician, and blood work was ordered. Her blood work showed an elevated WBC, liver function tests, and a low red blood cell. She was instructed to go to the hospital for further evaluation and treatment. Patient has been complaining of pain in her right upper quadrant and epigastric area. Has not had any nausea and vomiting. No problematic diarrhea. Denies any dysuria. She had an episode of fever about a week and a half ago. She denies any significant respiratory complaint. Workup done since admission showed an initial WBC of 25,000, and it's down to 19,000. Her LFTs are elevated, mostly the bilirubin, and alkaline phosphatase. Imaging studies showed abnormal liver, and gallstones. Surgery evaluated the patient and felt that she does not have any clinical evidence of acute cholecystitis. Patient also was seen by GI, and she underwent upper endoscopy which showed some gastritis, as well as portal hypertensive gastropathy. Esophagus was normal. Since admission she has had some low-grade temps. Today she had an episode of hypotension down to the mid 70s, and improved after 2 L of IV fluid. Patient stated that she's been tachycardic at least a month prior to admission. Infectious disease consultation has been requested to evaluate for possible sepsis. Since admission patient has been on Zosyn for biliary tract coverage. She is fairly asymptomatic as far as dizziness when she was hypotensive. She still feels tachycardic. HIDA scan was done and it did not show any findings of acute cholecystitis. She has findings compatible with hepatocellular disease, and possibly chronic cholecystitis. Notes reviewed Temps ok WBC decreasing Still with abdominal discomfort No new complaints Antibiotics Current Medications Zosyn Medications (Trade) Dose Ordered Sig/Maritza Route Start Time Stop Time Status Last Admin (NS Flush) 2 ml UNSCH PRN IV FLUSH 10/19/17 14:30 (NS Flush) 2 ml BID IV FLUSH 10/19/17 21:00 10/22/17 20:19 (Zofran Inj) 4 mg Q6H PRN IVP 10/19/17 14:30 (Narcan Inj) 0.4 mg UNSCH PRN IV PUSH 10/19/17 14:30 (Milk Of Magnesia Liq) 30 ml Q12H PRN PO 10/19/17 14:30 (Romazicon Inj) 0.2 mg Q1M PRN IV PUSH 10/19/17 14:30 (Ativan) 1 mg Q4H PRN PO 10/19/17 14:30 (Ativan Inj) 1 mg Q4H PRN IV PUSH 10/19/17 14:30 (Ativan) 2 mg Q2H PRN PO 10/19/17 14:30 (Ativan Inj) 2 mg Q2H PRN IV PUSH 10/19/17 14:30 (Ativan Inj) 2 mg Q1H PRN IV PUSH 10/19/17 14:30 (Ativan Inj) 2 mg Q15M PRN IV PUSH 10/19/17 14:30 (Theragran) 1 tab DAILY PO 10/20/17 09:00 10/23/17 08:39 (Vitamin B1) 100 mg DAILY PO 10/20/17 09:00 10/23/17 08:30 (Folate) 1 mg DAILY PO 10/20/17 09:00 10/23/17 08:28 (Catapres) 0.1 mg Q6H PRN PO 10/20/17 18:15 (Vistaril) 50 mg Q6H PRN PO 10/20/17 18:15 10/21/17 00:46 (Carafate Liq) 1 gm ACHS PO 10/21/17 12:00 10/23/17 11:27 (Protonix) 40 mg Q12HR PO 10/21/17 13:00 10/23/17 08:29 (Roxicodone) 5 mg Q8HR PRN PO 10/23/17 14:15 Lines PIV Past Medical History Hyperlipidemia Elevated liver enzymes IBS ETOH abuse, quit drinking 2 days ago Past Surgical History Precancerous mole removed left upper arm Allergies: Coded Allergies: Sulfa (Sulfonamide Antibiotics) (Unverified Allergy, Severe, Rash, 10/19/17 ) Objective . Vital Signs Date Time Temp Pulse Resp B/P (MAP) Pulse Ox O2 Delivery O2 Flow Rate FiO2 10/23/17 12:00 97.3 89 17 104/69 (81) 98 10/23/17 09:55 97 10/23/17 08:00 98.1 94 16 102/67 (79) 97 10/23/17 04:06 99.1 98 17 99/59 (72) 98 10/23/17 00:20 99.5 90 17 101/62 (75) 96 10/22/17 20:00 98.9 100 18 101/66 (78) 98 10/22/17 20:00 102 10/22/17 16:00 96.9 101 17 105/69 (81) 99 . Laboratory Tests Test 10/22/17 06:20 10/23/17 05:10 White Blood Count 19.2 TH/MM3 16.6 TH/MM3 Red Blood Count 3.07 MIL/MM3 3.16 MIL/MM3 Hemoglobin 10.5 GM/DL 10.9 GM/DL Hematocrit 31.2 % 32.7 % Mean Corpuscular Volume 101.6 FL 103.4 FL Mean Corpuscular Hemoglobin 34.2 PG 34.6 PG Mean Corpuscular Hemoglobin Concent 33.6 % 33.4 % Red Cell Distribution Width 16.5 % 17.0 % Platelet Count 303 TH/MM3 289 TH/MM3 Mean Platelet Volume 6.8 FL 6.8 FL Neutrophils (%) (Auto) 84.6 % 85.4 % Lymphocytes (%) (Auto) 8.0 % 7.4 % Monocytes (%) (Auto) 4.6 % 4.6 % Eosinophils (%) (Auto) 2.3 % 1.9 % Basophils (%) (Auto) 0.5 % 0.7 % Neutrophils # (Auto) 16.3 TH/MM3 14.2 TH/MM3 Lymphocytes # (Auto) 1.5 TH/MM3 1.2 TH/MM3 Monocytes # (Auto) 0.9 TH/MM3 0.8 TH/MM3 Eosinophils # (Auto) 0.4 TH/MM3 0.3 TH/MM3 Basophils # (Auto) 0.1 TH/MM3 0.1 TH/MM3 CBC Comment DIFF FINAL DIFF FINAL Differential Comment Laboratory Tests Test 10/22/17 06:20 10/22/17 12:22 10/22/17 18:42 10/23/17 05:10 Blood Urea Nitrogen 3 MG/DL 3 MG/DL Creatinine 0.36 MG/DL 0.42 MG/DL Random Glucose 92 MG/DL 94 MG/DL Total Protein 5.5 GM/DL 5.9 GM/DL Albumin 2.1 GM/DL 2.3 GM/DL Calcium Level 7.8 MG/DL 8.3 MG/DL Magnesium Level 2.0 MG/DL Alkaline Phosphatase 506 U/L 517 U/L Aspartate Amino Transf (AST/SGOT) 92 U/L 100 U/L Alanine Aminotransferase (ALT/SGPT) 50 U/L 52 U/L Total Bilirubin 2.9 MG/DL 2.8 MG/DL Sodium Level 141 MEQ/L 139 MEQ/L Potassium Level 3.3 MEQ/L 3.6 MEQ/L Chloride Level 107 MEQ/L 106 MEQ/L Carbon Dioxide Level 27.6 MEQ/L 27.0 MEQ/L Anion Gap 6 MEQ/L 6 MEQ/L Estimat Glomerular Filtration Rate 200 ML/MIN 167 ML/MIN Lactic Acid Level 1.7 mmol/L 1.9 mmol/L Imaging Last Impressions Hepatobiliary Scan Nuclear Medicine 10/22/17 0000 Signed Impressions: Service Date/Time: Sunday, October 22, 2017 12:54 - CONCLUSION: Diminished hepatocellular function and not much emptying from the gallbladder could be seen with chronic cholecystitis. Joyce Humphrey MD Chest X-Ray 10/19/17 1416 Signed Impressions: Service Date/Time: Thursday, October 19, 2017 15:26 - CONCLUSION: No acute disease. Louis Hare MD Gall Bladder Ultrasound 10/19/17 0000 Signed Impressions: Service Date/Time: Thursday, October 19, 2017 14:22 - CONCLUSION: 1. Cholelithiasis and sludge with gallbladder wall thickening and apparent mild pericholecystic fluid. 2. No evidence of biliary obstruction. 3. The liver is enlarged with mild to moderate hepatic steatosis. 4. Small amount of ascitic fluid. Rob Ryan MD Abdomen X-Ray 10/19/17 0000 Signed Impressions: Service Date/Time: Thursday, October 19, 2017 12:17 - CONCLUSION: 1. There are no findings to indicate small bowel obstruction but small bowel gas pattern is abnormal with a few mildly distended segments of small bowel in the left mid abdomen demonstrating air-fluid levels. Suggest followup to confirm resolution. 2. The liver appears enlarged and there is possible splenomegaly as well. Lyle Omalley MD Abdomen Ultrasound 10/19/17 0000 Signed Impressions: Service Date/Time: Thursday, October 19, 2017 22:16 - CONCLUSION: Trace ascites is noted. Joaquim Haro MD Physical Exam GENERAL: awake and alert, not in respiratory distress. SKIN: Warm and dry. No generalized rash HEENT: No injection, mild icterus, moist mucosa ABDOMEN: Soft, mildly distended, tender RUQ, with hepatomegaly. EXTREMITIES: No edema. NEUROLOGICAL: Non-focal PSYCHIATRIC: Normal affect, calm and cooperative. LINE: No evidence of infection Assessment & Plan Remarks IMPRESSION ?Sepsis, with episode of hypotension, tachycardia, elevated lactic acid - better - no new intervention done and she improved, possibly due to her ETOH hepatitis - has gallstones but clinically no evidence of acute cholecystitis - HIDA C/W chronic renee, hepatocellular dysfunction - CXR ok, no respiratory complaints - No complaints ETOH hepatitis, with ?ETOH liver cirrhosis - has portal gastropathy, and has skin findings of chronic liver disease RECOMMENDATION Stop Zosyn Monitor overnight If same, stable, should be ok to D/C on no Abx Likely inflammatory changes due to her ETOH hepatitis D/W Martha Mcneill MD Oct 23, 2017 15:41
[2017-10-23 19:51] LABS: CERULOPLASMIN 40 mg/dL (18-53)
[2017-10-24] VITALS: BP 97/55; PULSE 95; RESP 18; TEMP 98.2; O2SAT 96
[2017-10-24 06:50] LABS: AUTOMATED NEUTROPHIL # 13.7 TH/MM3 (1.8-7.7); BASOPHIL % 0.3 % (0.0-2.0); EOSINOPHIL # 0.3 TH/MM3 (0-0.4); EOSINOPHIL % 1.9 % (0.0-4.0); HEMATOCRIT 31.2 % (35.0-46.0); HEMOGLOBIN 10.7 GM/DL (11.6-15.3); LYMPH % 8.4 % (9.0-44.0); LYMPHOCYTE # 1.3 TH/MM3 (1.0-4.8); MEAN CELL VOLUME 101.2 FL (80.0-100.0); MEAN CORPUSCULAR HEMOGLOBIN 34.6 PG (27.0-34.0); MEAN CORPUSCULAR HGB CONC 34.2 % (32.0-36.0); MONO % 3.8 % (0.0-8.0); MONOCYTE # 0.6 TH/MM3 (0-0.9); NEUT % 85.6 % (16.0-70.0); PLATELET COUNT 308 TH/MM3 (150-450); RED BLOOD COUNT 3.08 MIL/MM3 (4.00-5.30); RED CELL DISTRIBUTION WIDTH 16.2 % (11.6-17.2); WHITE BLOOD COUNT 15.9 TH/MM3 (4.0-11.0)
[2017-10-24 07:25] LABS: ALBUMIN 2.1 GM/DL (3.4-5.0); AST (GOT) 105 U/L (15-37); BICARBONATE 27.9 MEQ/L (21.0-32.0); BLOOD UREA NITROGEN 4 MG/DL (7-18); CHLORIDE 106 MEQ/L (98-107); CREATININE 0.41 MG/DL (0.50-1.00); GLOMERULAR FILTRATION RATE 172 ML/MIN (>89); GLUCOSE,RANDOM 126 MG/DL (74-106); SODIUM (NA) 140 MEQ/L (136-145)
[2017-10-24 07:26] LABS: ALT (GPT) 50 U/L (10-53)
[2017-10-24 07:28] LABS: ALKALINE PHOSPHATASE 487 U/L (45-117); TOTAL BILIRUBIN ADULT 2.6 MG/DL (0.2-1.0); TOTAL PROTEIN 5.6 GM/DL (6.4-8.2)
[2017-10-24 07:44] LABS: BANDS 13 % (0-6); BASOPHILS 1 % (0-2); LYMPHOCYTES 4 % (9-44); MONOCYTES 2 % (0-8); MYELOCYTES 1 % (0-0); NEUTROPHIL # MANUAL DIFF 14.5 TH/MM3 (1.8-7.7); POLYS (SEG NEUTROPHILS) 77 % (16-70); TOXIC GRANULATION 1+ (NORMAL); TOXIC VACUOLATION PRESENT (NONE SEEN)
[2017-10-24 08:00] VITALS: BP 101/65; PULSE 96; RESP 19; TEMP 98.5; O2SAT 95
[2017-10-24] MEDS: SUCRALFATE 1 GM/10 ML CUP PO SCH (08:00)
[2017-10-24] MEDS ORDERED: SUCR1S PO (08:48)
[2017-10-24] MEDS: MULTIVITAMIN TAB PO SCH (08:49)
[2017-10-24] MEDS: FOLIC ACID 1 MG TAB PO SCH (08:49)
[2017-10-24] MEDS: THIAMINE HCL 100 MG TAB PO SCH (08:49)
[2017-10-24] MEDS: PANTOPRAZOLE SOD 40 MG DELAYED RELEASE TAB PO SCH (08:49)
[2017-10-24] MEDS: SODIUM CHLORIDE 0.9% FLUSH 10 ML FLUSH IV FLUSH SCH (08:50)
[2017-10-24] MEDS ORDERED: PANT40TA3 PO (08:55)
--- NOTE | 2017-10-24 08:56 | HHI.DS ---
Discharge Summary Admission Date Oct 19, 2017 at 14:28 Discharge Date: Oct 24, 2017 Admitting Diagnosis Leukocytosis (1) Hypotension ICD Codes: I95.9 - Hypotension, unspecified Status: Acute (2) Alcoholic cirrhosis ICD Codes: K70.30 - Alcoholic cirrhosis of liver without ascites (3) Acid reflux disease ICD Codes: K21.9 - Gastroesophageal reflux disease Status: Acute (4) Cholelithiasis ICD Codes: K80.20 - Calculus of gallbladder without cholecystitis without obstruction Consultants Dr. He, GI Dr. Sandoval, ID Dr. Thompson, general; surgery Procedures EDG 10/21/17 HIDA scan 10/22/17 Brief History This is a 42-year-old female with a past medical history which includes hyperlipidemia, elevated liver enzymes, IBS and ETOH abuse, quit drinking 2 days ago. Patient presents to the emergency room for evaluation after being referred here by outpatient lab for an elevated white count, liver enzymes, and low red blood cells. Patient states since September 19 she has been having worsening abdominal edema/bloating, intermitted bilateral lower extremity edema , occational nausea but no vomiting. Patient endorses diarrhea after the CT with contrast but that has resulted. She went to her primary care physician and had a CT which showed fatty liver. She was referred to rn security, . She saw him 2 days ago and was told that she likely has ascites secondary to cirrhosis and was to be started on aldosterone and lasix today. Patient reports that the lab called her and told her to go to the ER because of abnormal results. She denies significant abdominal pain. She had a fever of 102.3 1.5 weeks ago but has not had one since. Patient denies congestion, dysuria, increased urinary frequency, chest pain or shortness or breath. 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 CBC/BMP: 10/24/17 0619 10/24/17 0619 Significant Findings Laboratory Tests Test 10/22/17 06:20 10/22/17 12:22 10/22/17 18:42 10/23/17 05:10 White Blood Count 19.2 TH/MM3 (4.0-11.0) 16.6 TH/MM3 (4.0-11.0) Red Blood Count 3.07 MIL/MM3 (4.00-5.30) 3.16 MIL/MM3 (4.00-5.30) Hemoglobin 10.5 GM/DL (11.6-15.3) 10.9 GM/DL (11.6-15.3) Hematocrit 31.2 % (35.0-46.0) 32.7 % (35.0-46.0) Mean Corpuscular Volume 101.6 FL (80.0-100.0) 103.4 FL (80.0-100.0) Mean Corpuscular Hemoglobin 34.2 PG (27.0-34.0) 34.6 PG (27.0-34.0) Mean Platelet Volume 6.8 FL (7.0-11.0) 6.8 FL (7.0-11.0) Neutrophils (%) (Auto) 84.6 % (16.0-70.0) 85.4 % (16.0-70.0) Lymphocytes (%) (Auto) 8.0 % (9.0-44.0) 7.4 % (9.0-44.0) Neutrophils # (Auto) 16.3 TH/MM3 (1.8-7.7) 14.2 TH/MM3 (1.8-7.7) Blood Urea Nitrogen 3 MG/DL (7-18) 3 MG/DL (7-18) Creatinine 0.36 MG/DL (0.50-1.00) 0.42 MG/DL (0.50-1.00) Total Protein 5.5 GM/DL (6.4-8.2) 5.9 GM/DL (6.4-8.2) Albumin 2.1 GM/DL (3.4-5.0) 2.3 GM/DL (3.4-5.0) Calcium Level 7.8 MG/DL (8.5-10.1) 8.3 MG/DL (8.5-10.1) Alkaline Phosphatase 506 U/L (45-117) 517 U/L (45-117) Aspartate Amino Transf (AST/SGOT) 92 U/L (15-37) 100 U/L (15-37) Total Bilirubin 2.9 MG/DL (0.2-1.0) 2.8 MG/DL (0.2-1.0) Potassium Level 3.3 MEQ/L (3.5-5.1) Prothrombin Time 16.3 SEC (9.8-11.6) Activated Partial Thromboplast Time 31.7 SEC (24.3-30.1) Test 10/24/17 06:19 White Blood Count 15.9 TH/MM3 (4.0-11.0) Red Blood Count 3.08 MIL/MM3 (4.00-5.30) Hemoglobin 10.7 GM/DL (11.6-15.3) Hematocrit 31.2 % (35.0-46.0) Mean Corpuscular Volume 101.2 FL (80.0-100.0) Mean Corpuscular Hemoglobin 34.6 PG (27.0-34.0) Neutrophils (%) (Auto) 85.6 % (16.0-70.0) Lymphocytes (%) (Auto) 8.4 % (9.0-44.0) Neutrophils # (Auto) 13.7 TH/MM3 (1.8-7.7) Neutrophils % (Manual) 77 % (16-70) Band Neutrophils % 13 % (0-6) Lymphocytes % 4 % (9-44) Neutrophils # (Manual) 14.5 TH/MM3 (1.8-7.7) Myelocytes 1 % (0-0) Toxic Granulation 1+ (NORMAL) Toxic Vacuolation PRESENT (NONE SEEN) Blood Urea Nitrogen 4 MG/DL (7-18) Creatinine 0.41 MG/DL (0.50-1.00) Random Glucose 126 MG/DL (74-106) Total Protein 5.6 GM/DL (6.4-8.2) Albumin 2.1 GM/DL (3.4-5.0) Calcium Level 8.0 MG/DL (8.5-10.1) Alkaline Phosphatase 487 U/L (45-117) Aspartate Amino Transf (AST/SGOT) 105 U/L (15-37) Total Bilirubin 2.6 MG/DL (0.2-1.0) Imaging Last Impressions Hepatobiliary Scan Nuclear Medicine 10/22/17 0000 Signed Impressions: Service Date/Time: Sunday, October 22, 2017 12:54 - CONCLUSION: Diminished hepatocellular function and not much emptying from the gallbladder could be seen with chronic cholecystitis. Joyce Humphrey MD Chest X-Ray 10/19/17 1416 Signed Impressions: Service Date/Time: Thursday, October 19, 2017 15:26 - CONCLUSION: No acute disease. Louis Hare MD Gall Bladder Ultrasound 10/19/17 0000 Signed Impressions: Service Date/Time: Thursday, October 19, 2017 14:22 - CONCLUSION: 1. Cholelithiasis and sludge with gallbladder wall thickening and apparent mild pericholecystic fluid. 2. No evidence of biliary obstruction. 3. The liver is enlarged with mild to moderate hepatic steatosis. 4. Small amount of ascitic fluid. Rob Ryan MD Abdomen X-Ray 10/19/17 0000 Signed Impressions: Service Date/Time: Thursday, October 19, 2017 12:17 - CONCLUSION: 1. There are no findings to indicate small bowel obstruction but small bowel gas pattern is abnormal with a few mildly distended segments of small bowel in the left mid abdomen demonstrating air-fluid levels. Suggest followup to confirm resolution. 2. The liver appears enlarged and there is possible splenomegaly as well. Lyle Omalley MD Abdomen Ultrasound 10/19/17 0000 Signed Impressions: Service Date/Time: Thursday, October 19, 2017 22:16 - CONCLUSION: Trace ascites is noted. Joaquim Haro MD PE at Discharge GENERAL: This is a well-nourished, well-developed patient, in no apparent distress. CARDIOVASCULAR: regular rate and rhythm RESPIRATORY: Clear to auscultation. Breath sounds equal bilaterally. GASTROINTESTINAL: Abdomen soft, non-tender, distended. Liver margin below costal margin extends to the pelvic rim MUSCULOSKELETAL: Extremities without clubbing, cyanosis, or edema. No joint tenderness, effusion, or edema noted. No calf tenderness. Negative Homans sign bilaterally. NEUROLOGICAL: Awake and alert. No focal deficits noted. Motor and sensory grossly within normal limits. Five out of 5 muscle strength in all muscle groups. Normal speech. Hospital Course Hypotension - comgmt with ID - findings NOT c/w sepsis - afebrile since MN (2/3) - hypotension resolved - tele: NSR - WBC on admission 25.3 -> 21.1 (2/1) -> 19.9 (2/2), 19.2 (2/3), 16.6 (2/4), 15.9 (2/5) - CXR (10/19) --> no acute findings - UA (10/19) reviewed --> no culture indicated - Blood Cx (10/19) --> NGTD - US gallbladder (10/19) Gallbladder wall thickening measuring up to 5 mm. Small amount of apparent pericholecystic fluid. echogenic sludge within the gallbladder as well as a calcified stone with posterior shadowing. - HIDA (10/22) Diminished hepatocellular function and not much emptying from the gallbladder could be seen with chronic cholecystitis. - Pt seen by General Surgery, Dr. Thompson (10/20) - case informally d/w CCM, Dr. Parekh (10/22) - lactic acid 1.7, 1.9 - zosyn (10/20 - 10/23). Observe off zosyn - Case d/w ID, Dr. Sandoval, (10/23). At this point doubt infectious etiology of leukocytosis. Probably d/t acute alcoholic hepatitis. - repeat CBC, CMP, Mag in AM - DVT prophylaxis - cleared for DC per GI and ID Alcoholic hepatitis - comgmt with GI Patient counselled on ETOH use, encouraged to abstain Quit drinking 2 days ago [facility] protocol seizure precautions monitor for ss of withdraw hepatitis profile --> negative EGD 10/21/17 revealed severe gastritis 1. The esophagus appeared normal 2. There was chronic gastritis in the gastric antrum and gastric body; biopsy was performed 3. Portal hypertensive gastropathy was found in the gastric fundus 4. Normal duodenal mucosa in the bulb and second portion of the duodenum 5. Retroflexed views revealed no abnormalities RECOMMENDATIONS per GI: 1. Await biopsy results. 2. Anti-reflux regimen 3. Continue PPI 4. Avoid NSAIDS 5. Consider HIDA scan REPEAT EXAM: Return 1 year EGD pending biopsy results Patient will need outpatient follow up with [facility] behavior health, discussed patient with [facility] complex case management Ani. - Protonix 40mg BID - Carafate Acid reflux disease - see above Cholelithiasis - see above Pt Condition on Discharge: Stable Discharge Disposition: Discharge Home Discharge Instructions DIET: Follow Instructions for: Low Fat Diet Activities you can perform: Regular-No Restrictions Follow up Referrals: Behavioral Services - [address] [facility] Gastroenterology - 2 Weeks with Fernando He MD PCP Follow-up - [address] Salomon Surgical - 3 Weeks with Yonis Thompson MD New Medications: Pantoprazole (Pantoprazole) 40 Mg Tab 40 MG PO Q12HR for reduce stomach acid, #60 TAB 0 Refills Sucralfate Liq (Sucralfate Liq) 1 Gram/10 Ml Julisa 1 GM PO ACHS for gastritis for 30 Days, EACH 0 Refills Discontinued Medications: Omeprazole Magnesium (Prilosec) 20 Mg Tab 20 TAB PO ONCE, #30 TAB Rosita Hobbs Oct 24, 2017 08:56 Darryl Fuller MD Oct 24, 2017 10:39
[2017-10-24 08:58] VITALS: O2SAT 95
== END 2017-10-24 12:42 | disposition home or self-care (01) | DRG 433 ==
LOC: NEPC 10:19 → NEDA 14:28 → N07A 16:19
PROVIDERS: ADMIT Hospitalist; ATTEND Hospitalist
PROC: 0DB68ZX Excision of Stomach, Via Natural or Artificial Opening Endoscopic, Diagnostic (ICD-10-PCS; principal; 2017-10-21 11:00)
DX: K70.10 Alcoholic hepatitis without ascites (principal); K76.6 Portal hypertension; K70.30 Alcoholic cirrhosis of liver without ascites; I95.9 Hypotension, unspecified; K21.9 Gastro-esophageal reflux disease without esophagitis; K80.20 Calculus of gallbladder without cholecystitis without obstruction; E78.5 Hyperlipidemia, unspecified; F10.10 Alcohol abuse, uncomplicated; K76.0 Fatty (change of) liver, not elsewhere classified; K29.50 Unspecified chronic gastritis without bleeding
CPT/HCPCS: 71045; 74019; 76705; 78227; 80053; 80074; 80307; 81001; 82103; 82105; 82140; 82390; 82728; 83520; 83540; 83550; 83605; 83690; 83735; 84703; 85007; 85025; 85027; 85610; 85730; 86038; 86255; 87040; 88305; 93005; 96360; A9537; J2543; J2805; J3480; J7030